=== PATIENT | female | born 1975 ===

== ENCOUNTER → 2022-08-24 09:21 | Outpatient (BNVA) | payer OTHER, SELFPAY | PROVIDERS: PCP Internal Medicine; Visit Provider Internal Medicine Rheumatology | DX: Z13.89 Encounter for screening for other disorder (principal) ==

== ENCOUNTER 2022-08-24 10:27 | Outpatient (REF) | payer OTHER, SELFPAY ==
[2022-08-24 13:58] LABS: MANUAL DIFF FLAG NO
[2022-08-24 14:12] LABS: Basophils Percent Auto 0.7 % (0-2); Eosinophils Absolute Auto 0.1 X10*3/uL (0.0-0.4); Eosinophils Percent Auto 2.5 % (0-4); Hematocrit 36.3 % (37.0-47.0); Hemoglobin 12.5 g/dl (12.0-16.0); Imm Gran Abs Auto 0.01 X10*3/uL (0.00-0.03); Imm Gran Pct Auto 0.2 % (0.0-0.4); Lymphocytes Absolute Auto 1.7 X10*3/uL (1.2-4.9); Lymphocytes Percent Auto 37.4 % (20-40); Mean Corpuscular HGB Conc 34.4 g/dl (31.0-35.0); Mean Corpuscular Hemoglobin 31.2 pg (27.0-33.0); Mean Corpuscular Volume 90.5 fL (80.0-98.0); Mean Platelet Volume 9.9 fL (9.4-12.3); Monocytes Absolute Auto 0.5 X10*3/uL (0.1-1.2); Monocytes Percent Auto 10.1 % (2-11); Neutrophils Absolute Auto 2.2 x10*3/uL (2.0-8.3); Neutrophils Percent Auto 49.1 % (45-73); Platelet Count 343 X10*3/uL (160-400); Red Blood Count 4.01 X10*6/uL (4.20-5.50); Red Cell Distribution Width 12.8 % (11.0-16.0); White Blood Count 4.5 X10*3/uL (4.8-10.8)
[2022-08-24 14:31] LABS: Anion Gap 11 (12-20); Blood Urea Nitrogen 10 mg/dL (9-16); C Reactive Protein < 0.10 mg/dL (< or = 0.50); Calcium 9.3 mg/dL (8.4-10.2); Carbon Dioxide 25 mmol/L (22-29); Chloride 107 mmol/L (96-108); Estimated Glomerular Filt Rate > 60; Glucose Random 83 mg/dL (60-115); Potassium 4.1 mmol/L (3.3-5.1); Sodium 139 mmol/L (135-145)
[2022-08-24 14:52] LABS: Creatinine Urine 54.05 mg/dL; Total Protein Urine Random < 7 mg/dL (<12)
[2022-08-24 15:00] LABS: Erythrocyte Sedimentation Rate 18 MM/HR (0-20)
[2022-08-25 20:39] LABS: Complement C3 119 mg/dL (83-193)
[2022-08-28 22:33] LABS: Anti DNA DS Antibody 4 IU/mL
== END 2022-08-24 10:28 | disposition home or self-care (01) ==
LOC: HO.10HDL 10:27
PROVIDERS: Visit Provider Internal Medicine Rheumatology
DX: M32.9 Systemic lupus erythematosus, unspecified (principal)
CPT/HCPCS: 36415; 80048; 84156; 85025; 85652; 86140; 86160; 86225

== ENCOUNTER → 2022-09-07 10:38 | Outpatient (REF) | payer OTHER, SELFPAY ==
--- NOTE | 2022-09-07 10:40 | CA_ITS ---
Transthoracic Echocardiogram Patient (Last, First, Middle): Natasha Mera I Gender: Female Date of : 1975 Age: 47 Procedure Date: 09/07/2022 Procedure Type: Transthoracic Echocardiogram Location: OP Height: 160.02 cm Weight: 64.41 kg BSA: 1.67 m2 Heart Rate: bpm BP: 145 / 88 mmHg Post Doc Fellowship: MATT Referring MD: Steven Diamond MD Symptoms: M32.9 - Systemic lupus erythematosus, unspecified Study Quality: Adequate ECG Rhythm: Sinus Conclusions: - The left ventricular systolic function is normal. The calculated ejection fraction is 66% by biplane method. - There is mildly increased left ventricular wall thickness. - No obvious valvular pathology seen on this study. - There is a trivial pericardial effusion. Findings Left Ventricle Normal left ventricular cavity size. There is mildly increased left ventricular wall thickness. The left ventricular systolic function is normal. The calculated ejection fraction is 66% by biplane method. There is no evidence of regional wall motion abnormalities. LV peak GLS -21.9%. Right Ventricle Normal right ventricular cavity size and systolic function. Atria Both atria are normal in size. Aortic Valve There is a normal trileaflet aortic valve. There is no aortic valve stenosis. There is no aortic valve regurgitation. Mitral Valve The mitral valve appears normal. There is mild mitral valve regurgitation. There is no mitral valve stenosis. Pulmonic Valve The pulmonic valve is likely normal. Tricuspid Valve There is mild tricuspid valve regurgitation. There is no evidence of pulmonary hypertension. Great Vessels The asc aorta is normal in size. Venous The inferior vena cava is normal in size and collapses greater than 50% with inspiration. Pericardium/Pleural There is a trivial pericardial effusion. Prior Study Comparison No prior study available for comparison. Recommendations, Care & Conclusions No obvious valvular pathology seen on this study. Measurements 2D Linear Measurements IVSd: 1.04 0.6-0.9/0.6-1.0 cm LVIDd: 4.25 3.9-5.3/4.2-5.9 cm LVIDd Index: 2.54 2.4-3.2/2.2-3.1 cm/m2 LVIDs: 2.86 2.0-3.6 cm LVPWd: 1.02 0.7-1.1 cm LA Diam: 3.50 2.7-3.8/3.0-4.0 cm LAIDs Index: 2.10 1.5-2.3 cm/m2 LV Mass: 181.45 67-162/88-224 g LV Mass Index: 108.65 43-95/49-115 g/m2 LVOT Diam: 1.90 3.0+(-)1.3 cm 2D Systolic Function EF 4C: 61.90 >55% EF 2C: 68.40 >55% EF BiP: 65.90 >55% Mitral Valve MV Pk E: 0.89 MV PK A: 0.60 MV Decel Time: 213.00 E/A: 1.50 E'Lateral: 13.30 E'Medial: 8.70 E/E' Med: 10.30 E/E' Lat: 6.70 PHT: 62.00 MVA PHT: 3.55 Decel [place]: 4.19 Aortic Valve AoV Pk Rashad: 1.53 AoV Mn Rashad: 1.10 AoV VTI: 0.37 AoV Pk Grad: 9.00 Aov Mn Grad: 5.00 KATHY Cont.VTI: 2.06 LVOT LVOT Pk Rashad: 1.15 LVOT Mn Rashad: 0.73 LVOT VTI: 0.27 LVOT Pk Grad: 5.00 LVOT Mn Grad: 2.00 LVOT Diam: 1.90 LVOT Area: 2.84 Diastolic Function MV Pk E: 0.89 MV Pk A: 0.60 E/A: 1.50 E'Medial: 8.70 E/E' Med: 10.30 E' Laterial: 13.30 E/E' Lat: 6.70 Right Ventricle TAPSE (mm): 20.30 TVS' Rashad: 12.40 Tricuspid Valve TR Pk Rashad: 2.29 TR Pk Grad: 21.00 RA Press: 3.00 RVSP: 24.00 Great Vessels Aorta Sinus of Valsalva: 2.89 2.0-3.[address] [place]: 2.28 1.7-3.4 cm Ao Asc: 2.90 2.1-3.4 cm Ao Arch: 2.50 Updated in Other Vendor System with Status of Final Tonio Hubbard MD electronically signed on 09/09/2022 12:04:04 PM with status of Final
== END ==
LOC: HO.CARD 10:38
PROVIDERS: Visit Provider Internal Medicine Rheumatology
DX: R00.2 Palpitations (principal); R07.9 Chest pain, unspecified; M32.9 Systemic lupus erythematosus, unspecified; Z79.899 Other long term (current) drug therapy
CPT/HCPCS: 93306; 93356

== ENCOUNTER 2022-10-18 11:53 | Outpatient (REF) | payer OTHER, SELFPAY ==
[2022-10-18 14:18] LABS: Cholesterol 229 mg/dL; HDL Cholesterol 54 mg/dL; LDL Cholesterol Calculated 162 mg/dl; Triglycerides 69 mg/dL
== END 2022-10-18 11:54 | disposition home or self-care (01) ==
LOC: HO.10HDL 11:53
PROVIDERS: Visit Provider Internal Medicine Rheumatology
DX: Z13.220 Encounter for screening for lipoid disorders (principal); M32.9 Systemic lupus erythematosus, unspecified; E78.5 Hyperlipidemia, unspecified
CPT/HCPCS: 36415; 80061

== ENCOUNTER → 2023-01-16 09:27 | Outpatient (BNVA) | payer OTHER, SELFPAY | PROVIDERS: Visit Provider Internal Medicine Rheumatology ==

== ENCOUNTER 2023-01-16 10:47 | Outpatient (REF) | payer OTHER, SELFPAY ==
[2023-01-16 13:11] LABS: MANUAL DIFF FLAG NO
[2023-01-16 13:25] LABS: Basophils Percent Auto 0.5 % (0-2); Eosinophils Absolute Auto 0.2 X10*3/uL (0.0-0.4); Eosinophils Percent Auto 2.5 % (0-4); Hematocrit 37.8 % (37.0-47.0); Hemoglobin 12.6 g/dl (12.0-16.0); Imm Gran Abs Auto 0.01 X10*3/uL (0.00-0.03); Imm Gran Pct Auto 0.2 % (0.0-0.4); Lymphocytes Absolute Auto 1.8 X10*3/uL (1.2-4.9); Lymphocytes Percent Auto 29.4 % (20-40); Mean Corpuscular HGB Conc 33.3 g/dl (31.0-35.0); Mean Corpuscular Hemoglobin 30.7 pg (27.0-33.0); Mean Corpuscular Volume 92.2 fL (80.0-98.0); Mean Platelet Volume 9.6 fL (9.4-12.3); Monocytes Absolute Auto 0.5 X10*3/uL (0.1-1.2); Monocytes Percent Auto 8.4 % (2-11); Neutrophils Absolute Auto 3.5 x10*3/uL (2.0-8.3); Platelet Count 325 X10*3/uL (160-400); Red Cell Distribution Width 12.1 % (11.0-16.0)
[2023-01-16 13:39] LABS: Alanine Aminotransferase 14 U/L (0-31); Albumin Level 4.4 g/dL (3.5-5.0); Alkaline Phosphatase 87 U/L (39-117); Anion Gap 11 (12-20); Aspartate Amino Transferase 19 U/L (5-31); Bilirubin Total 0.7 mg/dL (0.0-1.0); Blood Urea Nitrogen 12 mg/dL (9-16); Calcium 9.6 mg/dL (8.4-10.2); Carbon Dioxide 26 mmol/L (22-29); Chloride 110 mmol/L (96-108); Estimated Glomerular Filt Rate > 60; Glucose Random 79 mg/dL (60-115); Potassium 4.8 mmol/L (3.3-5.1); Sodium 142 mmol/L (135-145); Total Protein 7.7 g/dL (6.5-8.0)
[2023-01-16 13:41] LABS: Creatinine Urine 112.48 mg/dL; Total Protein Urine Random < 7 mg/dL (<12)
[2023-01-16 14:10] LABS: Erythrocyte Sedimentation Rate 28 MM/HR (0-20)
[2023-01-17 18:27] LABS: Complement C3 137 mg/dL (83-193)
== END 2023-01-16 10:48 | disposition home or self-care (01) ==
LOC: HO.10HDL 10:47
PROVIDERS: Visit Provider Internal Medicine Rheumatology
DX: M32.9 Systemic lupus erythematosus, unspecified (principal); M22.40 Chondromalacia patellae, unspecified knee
CPT/HCPCS: 36415; 80053; 82550; 84156; 85025; 85652; 86140; 86160

== ENCOUNTER 2023-05-23 10:04 | Outpatient (AMB) | payer OTHER, SELFPAY ==
--- NOTE | 2023-05-23 10:06 | MHC.OFFVIS ---
Intake Vital Signs 05/23/23 10:16 Height 5 ft 3 in Weight 150 lb 12.739 oz BMI 26.7 BP 102/80 Blood Pressure Location Rt brachial Position Sitting Pulse 71 Pulse Source Pulse Oximeter Temp 97.9 F Temp Source Skin Pulse Oximetry (%) 96 Oxygen Delivery Method Room Air Intake Visit Reasons: sle Intake Note: Patient presents today for SLE follow up. Orientation And Mobility Instructor Required: No Accompanied by: Self / Same As Patient Allergies No Known Allergies Allergy (Verified 05/23/23 10:16) Medication List - Last Reconciled 05/23/23 by Steven Diamond MD acetaminophen (Tylenol Extra Strength) 500 mg PO Q6H PRN atorvastatin 20 mg PO QPM estradiol 0.01%(0.1mg/gram) 1 g vaginal 2XW hydroxychloroquine (Plaquenil) 300 mg (1.5 x 200 mg) PO DAILY ibuprofen (Motrin IB) 800 mg PO DAILY levothyroxine 25 mcg PO DAILY losartan 100 mg PO DAILY metoprolol tartrate 12.5 mg PO DAILY HPI HPI Comments History of Present Illness Details The patient returns for evaluation of her lupus. She remains on 300 mg daily hydroxychloroquine, acetaminophen a few times a day if needed, and occasional ibuprofen as well for joint pain. She has had a supply of 5 mg prednisone that she takes for about 3 days in a row if she feels like she gets a flare-up. During the late summer she did have a series of urinary tract infections. She sounds like she was treated 3 times for such infections. Not surprisingly she then developed some crampy left lower quadrant pain and diarrhea. At one point she was hydrated in the ER. It was found shortly after that that she had C difficile so she was put on vancomycin. Diarrhea has improved. She still has some slight left lower quadrant discomfort. She had a CT scan of the abdomen done while at [facility] This showed some slight thickening in the bladder but otherwise no other significant findings. She has not had any skin rash or swollen joints. In general she felt worse when she had the urinary infection and the colitis with overall fatigue, chills and some joint pain but no swelling of the joints. She remains on levothyroxine and losartan with metoprolol for palpitations. [facility] Medical History (Updated 05/23/23 @ 13:42 by Steven Diamond MD) delivery delivered Skin laxity SLE (systemic lupus erythematosus) Hypothyroidism Degenerative cervical disc Essential hypertension Snoring Palpitation Chronic diarrhea Lymphadenopathy Surgical History H/O foot surgery History of cholecystectomy Family History Maternal Uncle Colon cancer Maternal Aunt Breast cancer Uterine cancer Mother Lymph node cancer Social History Household Members: Spouse, Children and Other Household Members Other:: Mother Alcohol intake: never Patient Tobacco Use Status: Never used Tobacco Current occupational status: employed 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 Negative for vision change, and dizziness ENT Details: Some oral dryness. Negative for hearing change, tinnitus, oral ulcer, nose bleeds Card Details: Negative chest pain, edema , palpitations and syncope Resp Details: Negative for SOB, cough and wheezing GI Details: Mild left lower quadrant discomfort. Negative indigestion/heartburn, nausea, bowel changes, diarrhea, constipation and bloody stool. Details: Negative for dysuria, hematuria, nocturia, decreased force/flow and genital discharge Skin/Breast Details: Negative for itching, rash, hives, Raynaud's symptoms, sun sensitivity, and skin cancer Neuro Details: Negative for epilepsy, palsy, stroke, changes in speech, tingling and weakness Psych Details: Negative for anxiety, depression and stress Endo Details: Negative for polyuria and polydypsia Juan/Lymph Details: Negative for excessive bruising or bleeding. Physical Exam Vital Signs: Last Vital Signs Temp 97.9 F 05/23/23 10:16 Pulse 71 05/23/23 10:16 BP 102/80 05/23/23 10:16 Pulse Ox 96 05/23/23 10:16 Oxygen Delivery Method Room Air 05/23/23 10:16 BMI result Body Mass Index 26.7 APPEARANCE: Patient in no acute distress EYES no redness, pupils equal and reactive to light, eyelids normal EARS:? External ear normal, canal clear and tympanic membrane normal. NOSE/SINUS:? Airflow through both nares, no nasal discharge, no bleeding THROAT:? Oral mucosa moist, no ulcerations NECK:? No thyromegaly or masses, no adenopathy, trachea midline. HEART:? Regulrar rhythm, S1-S2 heard, no murmurs, rubs or gallops. LUNG:? Clear to percussion and auscultation ABD:? Normal bowel sounds, no organomegaly, masses or tenderness. EXTREMITIES:? No edema, no calf tenderness, normal peripheral pulses. No axillary adenopathy. There is no tenderness or breaks in the skin. NEURO:? Oriented and alert x3.? No focal weakness. Her reflexes are symmetric.? Gait normal. SKIN:? No skin the lesions seen. No objective signs of Raynaud's disease. JOINT EXAM:.?? Cervical Spine:? Full range of motion without pain; no tenderness. Thoracic Spine:.? No scoliosis.? No tenderness on palpation. Lumbar Spine:.? Alignment normal.? Full range of motion with slight lumbar discomfort at the extremes of motion. No tenderness. Chest Wall:.? No tenderness, swelling, increased warmth or erythema. Hands:.? Normal pain-free range of motion without tenderness, swelling, increased warmth or erythema. 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 Wrists:.? Normal pain-free range of motion without tenderness, swelling, increased warmth or erythema. Elbows:. Normal pain-free range of motion without tenderness, swelling, increased warmth or erythema. Shoulders:.? Right:? no fullness in the right axillary area.? No tenderness.? There is pain-free range of motion without tenderness in the shoulder.? Left:? Full range of motion without pain. No tenderness, weakness, swelling, increased warmth or erythema. Hips:.? Full range of motion without pain. Hip bursa:.? No tenderness. Knees:.?? Mild pain with extremes of motion some no joint margin or patellar tenderness bilaterally. There is no redness, effusion or warmth. No popliteal tenderness. No ligamentous laxity. Ankles:.? Normal pain-free range of motion without tenderness, swelling, increased warmth or erythema. Feet:? Normal pain-free range of motion without tenderness, swelling, increased warmth or erythema. Tender points:? No tenderness to digital palpation at the occiput, trapezius, second rib, lateral epicondyle, knees, greater trochanter and gluteal area bilaterally. ? 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 Source 02/2010: flare of SLE vs pre-eclampsia.Renal biopsy 12/21: Class 2 lupus nephritis(meangial proliferative) Proteinuria developed; remains on hydroxychlorquine. Eye exam OK 02/20 Hydroxychloroquine had to be stopped in 2014 because of loose stools and abdominal pains. Restarted 01/27 with SLE flare - stopped again 2019; restarted 2020; eye exam OK: fall, spring 2022 Code(s): M32.9 - Systemic lupus erythematosus, unspecified Plan SLE with no clear active disease presently. I think she should stay on the hydroxychloroquine. She should get an eye exam again next winter; September or October would be a reasonable time frame. She is recovering from some C difficile colitis. She still has some minimal left lower quadrant discomfort. I think that if that continues or she gets loose stools again she should be re-evaluated by her primary care team. We will keep the prednisone in reserve to take occasionally for flare ups as she seems to use that in a controlled fashion. I will recheck her labs for inflammatory disease, kidney function and CBC although I would expect the inflammatory markers may be elevated because of her recent infections. We would aim to see her back in about 2 months. Medications: New prednisone 5 mg PO DAILY PRN 30 tabs 0RF lupus flare up 3 days M32.9 - Systemic lupus erythematosus, unspecified Coding Level of Care Code Est Pt Level 3 (76704) Diagnoses History of Clostridioides difficile colitis Z86.19 Long-term use of hydroxychloroquine Z79.899 SLE (systemic lupus erythematosus) M32.9
[2023-05-23 10:16] VITALS: BP 102/80; PULSE 71; TEMP 36.6; O2SAT 96; BMI 26.7
== END 2023-05-23 10:53 | disposition home or self-care (01) ==
PROVIDERS: Visit Provider Internal Medicine Rheumatology
DX: Z86.19 Personal history of other infectious and parasitic diseases (principal); Z79.899 Other long term (current) drug therapy; M32.9 Systemic lupus erythematosus, unspecified
CPT/HCPCS: 99213

== ENCOUNTER → 2023-05-23 10:04 | Outpatient (BNVA) | payer OTHER, SELFPAY | PROVIDERS: Visit Provider Internal Medicine Rheumatology ==

== ENCOUNTER 2023-07-27 09:51 | Outpatient (REF) | payer OTHER, SELFPAY ==
[2023-07-27 10:27] LABS: MANUAL DIFF FLAG NO
[2023-07-27 11:10] LABS: Creatinine Urine 173.94 mg/dL; Protein/Creatinine Ratio, Ur 0.07 (<0.2); Total Protein Urine Random 12 mg/dL (<12)
[2023-07-27 11:19] LABS: Alanine Aminotransferase 10 U/L (0-31); Albumin Level 4.5 g/dL (3.5-5.0); Alkaline Phosphatase 74 U/L (39-117); Anion Gap 10 (12-20); Aspartate Amino Transferase 16 U/L (5-31); Bilirubin Total 0.5 mg/dL (0.0-1.0); Blood Urea Nitrogen 12 mg/dL (9-16); C Reactive Protein < 0.10 mg/dL (< or = 0.50); Calcium 9.3 mg/dL (8.4-10.2); Carbon Dioxide 26 mmol/L (22-29); Chloride 107 mmol/L (96-108); Cholesterol 184 mg/dL (<200); Estimated Glomerular Filt Rate > 60; Glucose Random 87 mg/dL (60-115); HDL Cholesterol 55 mg/dL (>40); LDL Cholesterol Calculated 118 mg/dL (<100); Potassium 3.7 mmol/L (3.3-5.1); Sodium 139 mmol/L (135-145); Total Protein 7.9 g/dL (6.5-8.0); Triglycerides 57 mg/dL (<150)
[2023-07-27 11:23] LABS: Erythrocyte Sedimentation Rate 9 MM/HR (0-20)
[2023-07-27 12:08] LABS: Basophils Percent Auto 0.5 % (0-2); Eosinophils Absolute Auto 0.1 X10*3/uL (0.0-0.4); Eosinophils Percent Auto 1.4 % (0-4); Hematocrit 39.4 % (37.0-47.0); Hemoglobin 13.5 g/dl (12.0-16.0); Imm Gran Abs Auto 0.01 X10*3/uL (0.00-0.03); Imm Gran Pct Auto 0.2 % (0.0-0.4); Lymphocytes Absolute Auto 2.4 X10*3/uL (1.2-4.9); Lymphocytes Percent Auto 42.4 % (20-40); Mean Corpuscular HGB Conc 34.3 g/dl (31.0-35.0); Mean Corpuscular Hemoglobin 30.8 pg (27.0-33.0); Mean Corpuscular Volume 89.7 fL (80.0-98.0); Mean Platelet Volume 9.4 fL (9.4-12.3); Monocytes Absolute Auto 0.5 X10*3/uL (0.1-1.2); Monocytes Percent Auto 8.8 % (2-11); Neutrophils Absolute Auto 2.7 x10*3/uL (2.0-8.3); Neutrophils Percent Auto 46.7 % (45-73); Platelet Count 281 X10*3/uL (160-400); Red Blood Count 4.39 X10*6/uL (4.20-5.50); Red Cell Distribution Width 11.9 % (11.0-16.0); White Blood Count 5.7 X10*3/uL (4.8-10.8)
== END 2023-07-27 09:52 | disposition home or self-care (01) ==
LOC: HO.10HDL 09:51
PROVIDERS: Visit Provider Internal Medicine Rheumatology
DX: M32.9 Systemic lupus erythematosus, unspecified (principal); E78.2 Mixed hyperlipidemia
CPT/HCPCS: 36415; 80053; 80061; 82570; 84156; 85025; 85652; 86140

== ENCOUNTER 2023-08-01 10:18 | Outpatient (AMB) | payer OTHER, SELFPAY ==
--- NOTE | 2023-08-01 10:25 | A.OFFVIS_ITS ---
Intake Vital Signs 08/01/23 10:26 Height 5 ft 3 in Weight 149 lb 7.574 oz BMI 26.5 BP 132/70 Blood Pressure Location Lt brachial Position Sitting Pulse 82 Pulse Source Pulse Oximeter Temp 98.5 F Temp Source Skin Pulse Oximetry (%) 98 Oxygen Delivery Method Room Air Intake Visit Reasons: sle Intake Note: Patient last seen 05/23/23, presents today for follow up and test results. Director Occupational Required: No Accompanied by: Self / Same As Patient Allergies No Known Allergies Allergy (Verified 08/01/23 10:32) HPI HPI Comments History of Present Illness Details The patient returns for evaluation of her SLE. She remains on hydroxychloroquine taking 200 mg daily, occasional acetaminophen for pain, and occasional 5 mg prednisone. She has been having occasional pain in the right ankle in the past 2 weeks. There was no injury involved. More problematic for her has been pain in the lower back. This started about 2 weeks ago. Again no injury was noted. The pain is worse with more physical activity or with prolonged sitting. It does not radiate to the flank, groin or to the legs. She did take the prednisone for the back pain but of course it did help her. She remains on atorvastatin for hyperlipidemia levothyroxine, losartan and metoprolol. She is running out of the metoprolol and wants to get a refill. She apparently could not reach the assembly machine set up mechanic who had prescribed it. [facility] Medical History (Updated 08/01/23 @ 11:12 by Steven Diamond MD) delivery delivered Skin laxity SLE (systemic lupus erythematosus) Hypothyroidism Degenerative cervical disc Essential hypertension Snoring Palpitation Chronic diarrhea Lymphadenopathy Surgical History H/O foot surgery History of cholecystectomy Family History Maternal Uncle Colon cancer Maternal Aunt Breast cancer Uterine cancer Mother Lymph node cancer Social History Household Members: Spouse, Children and Other Household Members Other:: Mother Alcohol intake: never Patient Tobacco Use Status: Never used Tobacco Current occupational status: employed 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 Negative for appetite change, weight change, fever, chills, malaise Eyes Details: Negative for vision change, dry eyes,headaches and dizziness ENT Details: Negative for hearing change, tinnitus, oral ulcer, nose bleeds and oral dryness. Card Details: Occasional palpitations, this is helped with metoprolol. Negative chest pain, edema and syncope Resp Details: Negative for SOB, cough and wheezing GI Details: She had 2 bouts of diarrhea this year attributed to C difficile but the symptoms have subsided. Negative indigestion/heartburn, nausea, abdominal pain, bowel changes, diarrhea, constipation and bloody stool. Details: Negative for dysuria, hematuria, nocturia, decreased force/flow and genital discharge Skin/Breast Details: Negative for itching, rash, hives, Raynaud's symptoms, sun sensitivity, and skin cancer Neuro Details: Negative for epilepsy, palsy, stroke, changes in speech, tingling and weakness Psych Details: Negative for anxiety, depression and stress Endo Details: Negative for polyuria and polydypsia Juan/Lymph Details: Negative for excessive bruising or bleeding. Physical Exam Vital Signs: Last Vital Signs Temp 98.5 F 08/01/23 10:26 Pulse 82 08/01/23 10:26 BP 132/70 08/01/23 10:26 Pulse Ox 98 08/01/23 10:26 Oxygen Delivery Method Room Air 08/01/23 10:26 BMI result Body Mass Index 26.5 APPEARANCE: Patient in no acute distress EYES no redness, pupils equal and reactive to light, eyelids normal EARS:? External ear normal, canal clear and tympanic membrane normal. NOSE/SINUS:? Airflow through both nares, no nasal discharge, no bleeding THROAT:? Oral mucosa moist, no ulcerations NECK:? No thyromegaly or masses, no adenopathy, trachea midline. HEART:? Regulrar rhythm, S1-S2 heard, no murmurs, rubs or gallops. LUNG:? Clear to percussion and auscultation ABD:? Normal bowel sounds, no organomegaly, masses or tenderness. EXTREMITIES:? No edema, no calf tenderness, normal peripheral pulses. No axillary adenopathy. NEURO:? Oriented and alert x3.? No focal weakness. Her reflexes are symmetric.? Gait normal. SKIN:? No skin the lesions seen. No objective signs of Raynaud's disease. JOINT EXAM:.?? Cervical Spine:? Full range of motion without pain; no tenderness. Thoracic Spine:.? No scoliosis.? No tenderness on palpation. Lumbar Spine:.? Alignment normal.? Lumbar pain with flexion at 60 degrees with some paraspinal muscle tenderness but no tenderness over the vertebral spines. Straight leg raising is negative.. Chest Wall:.? No tenderness, swelling, increased warmth or erythema. Hands:.? Normal pain-free range of motion without tenderness, swelling, increased warmth or erythema. 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 Wrists:.? Normal pain-free range of motion without tenderness, swelling, increased warmth or erythema. Elbows:. Normal pain-free range of motion without tenderness, swelling, increased warmth or erythema. Shoulders:.? Right:? no fullness in the right axillary area.? No tenderness.? There is pain-free range of motion without tenderness in the shoulder.? Left:? Full range of motion without pain. No tenderness, weakness, swelling, increased warmth or erythema. Hips:.? Full range of motion without pain. Hip bursa:.? No tenderness. Knees:.?? Mild pain with extremes of motion some no joint margin or patellar tenderness bilaterally. There is no redness, effusion or warmth. No popliteal tenderness. No ligamentous laxity. Ankles:.? Right: Slight discomfort with extremes of inversion and eversion. There is some mild anterior tenderness over the extensor tendons in front of the ankle. No redness or swelling is appreciated. Left: Normal pain-free range of motion without tenderness, swelling, increased warmth or erythema. Feet:? Normal pain-free range of motion without tenderness, swelling, increased warmth or erythema. ? Results Reviewed Results Reviewed: Laboratory Tests 10/18/22 07/27/23 07/27/23 11:56 10:00 10:00 WBC 5.7 Hgb 13.5 ESR 9 Creatinine 0.81 C-Reactive Protein < 0.10 Cholesterol 229 184 LDL Cholesterol, Calc 162 118 H Laboratory Tests 07/27/23 09:35 Protein/Creatinin Ratio 0.07 Assessment & Plan Assessment & Plan (1) Low back pain: Code(s): M54.50 - Low back pain, unspecified (2) Essential hypertension: Code(s): I10 - Essential (primary) hypertension (3) Hyperlipidemia: Code(s): E78.5 - Hyperlipidemia, unspecified (4) SLE (systemic lupus erythematosus): Comment: Onset 2001 with fever, arthritis, skin rash, throbocytopenia 04/2007: abdominal pains, fever, headaches with some CSF blood - ? Source 02/2010: flare of SLE vs pre-eclampsia.Renal biopsy 12/21: Class 2 lupus nephritis(meangial proliferative) Proteinuria developed; remains on hydroxychlorquine. Eye exam OK 02/20 Hydroxychloroquine had to be stopped in 2014 because of loose stools and abdominal pains. Restarted 01/27 with SLE flare - stopped again 2019; restarted 2020; eye exam OK: fall, spring 2022 Code(s): M32.9 - Systemic lupus erythematosus, unspecified Plan SLE with I think good control of SLE symptoms with current treatment. The back pain I think is secondary to mechanical and degenerative changes. We will try some nighttime cyclobenzaprine for that and a referral to physical therapy. I told her if symptoms do not improve in 4-6 weeks she should have an x-ray done. The cholesterol had improves considerably on the atorvastatin so I think it should be continued. Blood pressure is controlled; I will give her a regill for the metoprolol. I will order lab work to be done before next visit in about 3 months. Orders: Orders Erythrocyte Sedimentation Rate Today M32.9 - Systemic lupus erythematosus, unspecified Anti DNA DS Antibody Today M32.9 - Systemic lupus erythematosus, unspecified Complement C3 Today M32.9 - Systemic lupus erythematosus, unspecified Complete Blood Count Auto Diff Today M32.9 - Systemic lupus erythematosus, unspecified PT Evaluation and Treatment Today M54.50 - Low back pain, unspecified Complement C4 Today M32.9 - Systemic lupus erythematosus, unspecified Comprehensive Met. Panel Today M32.9 - Systemic lupus erythematosus, unspecified C Reactive Protein Today M32.9 - Systemic lupus erythematosus, unspecified Protein Creatinine Ratio, Ur Today M32.9 - Systemic lupus erythematosus, unspecified Medications: New metoprolol tartrate 12.5 mg (1/2 x 25 mg) PO DAILY 30 tabs 2RF I10 - Essential (primary) hypertension cyclobenzaprine 5 - 10 mg (0.5 - 1 x 10 mg) PO BEDTIME PRN 30 tabs 1RF muscle spasm M54.50 - Low back pain, unspecified Coding Level of Care Code Est Pt Level 4 (15647) Diagnoses Low back pain M54.50 Essential hypertension I10 Hyperlipidemia E78.5 SLE (systemic lupus erythematosus) M32.9
[2023-08-01 10:26] VITALS: BP 132/70; PULSE 82; TEMP 36.9; O2SAT 98; BMI 26.5
== END 2023-08-01 11:26 | disposition home or self-care (01) ==
PROVIDERS: Visit Provider Internal Medicine Rheumatology
DX: M54.50 Low back pain, unspecified (principal); I10 Essential (primary) hypertension; E78.5 Hyperlipidemia, unspecified; M32.9 Systemic lupus erythematosus, unspecified
CPT/HCPCS: 99214

== ENCOUNTER → 2023-08-01 10:18 | Outpatient (BNVA) | payer OTHER, SELFPAY | PROVIDERS: Visit Provider Internal Medicine Rheumatology ==

== ENCOUNTER 2023-11-07 16:22 | Outpatient (REF) | payer OTHER, SELFPAY ==
[2023-11-07 16:36] LABS: MANUAL DIFF FLAG NO
[2023-11-07 17:53] LABS: Basophils Percent Auto 0.6 % (0-2); Eosinophils Absolute Auto 0.1 X10*3/uL (0.0-0.4); Eosinophils Percent Auto 1.9 % (0-4); Hematocrit 36.8 % (37.0-47.0); Imm Gran Abs Auto 0.01 X10*3/uL (0.00-0.03); Imm Gran Pct Auto 0.2 % (0.0-0.4); Lymphocytes Absolute Auto 2.7 X10*3/uL (1.2-4.9); Lymphocytes Percent Auto 42.5 % (20-40); Mean Corpuscular HGB Conc 35.3 g/dl (31.0-35.0); Mean Corpuscular Hemoglobin 31.6 pg (27.0-33.0); Mean Corpuscular Volume 89.5 fL (80.0-98.0); Mean Platelet Volume 9.6 fL (9.4-12.3); Monocytes Absolute Auto 0.5 X10*3/uL (0.1-1.2); Monocytes Percent Auto 8.5 % (2-11); Neutrophils Percent Auto 46.3 % (45-73); Platelet Count 303 X10*3/uL (160-400); Red Blood Count 4.11 X10*6/uL (4.20-5.50); Red Cell Distribution Width 11.8 % (11.0-16.0); White Blood Count 6.4 X10*3/uL (4.8-10.8)
[2023-11-07 18:07] LABS: Alanine Aminotransferase 16 U/L (0-31); Albumin Level 4.3 g/dL (3.5-5.0); Alkaline Phosphatase 72 U/L (39-117); Anion Gap 12 (12-20); Aspartate Amino Transferase 20 U/L (5-31); Bilirubin Total 0.6 mg/dL (0.0-1.0); Blood Urea Nitrogen 16 mg/dL (9-16); C Reactive Protein < 0.10 mg/dL (< or = 0.50); Calcium 9.5 mg/dL (8.4-10.2); Carbon Dioxide 27 mmol/L (22-29); Chloride 108 mmol/L (96-108); Estimated Glomerular Filt Rate > 60; Glucose Random 84 mg/dL (60-115); Potassium 3.8 mmol/L (3.3-5.1); Sodium 143 mmol/L (135-145); Total Protein 7.6 g/dL (6.5-8.0)
[2023-11-07 19:16] LABS: Erythrocyte Sedimentation Rate 13 MM/HR (0-20)
[2023-11-07 22:29] LABS: Total Protein Urine Random < 7 mg/dL (<12)
[2023-11-08 14:09] LABS: Anti DNA DS Antibody 3 IU/mL
[2023-11-10 01:58] LABS: Complement C3 89 mg/dL (83-193)
== END 2023-11-07 16:23 | disposition home or self-care (01) ==
LOC: HO.LAB 16:22
PROVIDERS: Visit Provider Internal Medicine Rheumatology
DX: M32.9 Systemic lupus erythematosus, unspecified (principal)
CPT/HCPCS: 36415; 80053; 82570; 84156; 85025; 85652; 86140; 86160; 86225

== ENCOUNTER 2023-11-09 10:01 | Outpatient (AMB) | payer OTHER, SELFPAY ==
--- NOTE | 2023-11-09 10:02 | A.OFFVIS_ITS ---
Intake Vital Signs 11/09/23 10:09 Height 5 ft 3 in Weight 148 lb 12.992 oz BMI 26.4 BP 120/78 Blood Pressure Location Rt brachial Position Sitting Pulse 64 Pulse Source Pulse Oximeter Temp 97 F Temp Source Skin Pulse Oximetry (%) 97 Oxygen Delivery Method Room Air Intake Visit Reasons: SLE/CONFRIMED Intake Note: Patient last seen 06/01/[address] Diamond, presents today for follow up and test results. Reports episode of chest pain, tenderness to touch. Health Director Required: No Accompanied by: Self / Same As Patient Allergies No Known Allergies Allergy (Verified 11/09/23 10:08) HPI HPI Comments History of Present Illness Details Ms. Kaur 48yoF returns for evaluation of her SLE. She remains on hydroxychloroquine taking 200 mg daily, occasional acetaminophen for pain, and occasional 5 mg prednisone. She averages prednisone once or twice per year. She has been feeling well with no complaints. However, she shares that she felt a sharp pain to her left chest yesterday (11/07/2023). Initially the chest area remains severely tender to the touch for about an hour but now she only feels that soreness when she squeezes her chest with her arm. She denies exertion activities, GERD, SOB, headache, jaw pain, blurry vision or speech alteration. She has no facial droop and swallows food OK. She cannot recreate the pain and there is no tenderness to palpation at this time. She remains on atorvastatin for hyperlipidemia levothyroxine, losartan and metop rolol. She has not seen temperer in about 2 years. [facility] Medical History (Updated 11/09/23 @ 12:31 by JAYDEN Corcoran) Chest pain delivery delivered Skin laxity SLE (systemic lupus erythematosus) Hypothyroidism Degenerative cervical disc Essential hypertension Snoring Palpitation Chronic diarrhea Lymphadenopathy Surgical History H/O foot surgery History of cholecystectomy Family History Maternal Uncle Colon cancer Maternal Aunt Breast cancer Uterine cancer Mother Lymph node cancer Social History Household Members: Spouse, Children and Other Household Members Other:: Mother Alcohol intake: never Patient Tobacco Use Status: Never used Tobacco Current occupational status: employed 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 External ear normal, canal clear and tympanic membrane normal. NOSE/SINUS:? Airflow through both nares, no nasal discharge, no bleeding THROAT:? Oral mucosa moist, no ulcerations NECK:? No thyromegaly or masses, no adenopathy, trachea midline. HEART:? Regular rhythm, S1-S2 heard, no murmurs, rubs or gallops. LUNG:? Clear to percussion and auscultation ABD:? Normal bowel sounds, no organomegaly, masses or tenderness. EXTREMITIES:? No edema, no calf tenderness, normal peripheral pulses. No axillary adenopathy. NEURO:? Oriented and alert x3.? No focal weakness. Her reflexes are symmetric.? Gait normal. SKIN:? No skin the lesions seen. No objective signs of Raynaud's disease. JOINT EXAM:.?? Cervical Spine:? Full range of motion without pain; no tenderness. Thoracic Spine:.? No scoliosis.? No tenderness on palpation. Lumbar Spine:.? Alignment normal.? Lumbar pain with flexion at 60 degrees with some paraspinal muscle tenderness but no tenderness over the vertebral spines. Straight leg raising is negative.. Chest Wall:.? No tenderness, swelling, increased warmth or erythema. Hands:.? Normal pain-free range of motion without tenderness, swelling, increased warmth or erythema. Able to make a full fist and has a good vice president of procurement s trength. Wrists:.? Normal pain-free range of motion without tenderness, swelling, increased warmth or erythema. Elbows:. Normal pain-free range of motion without tenderness, swelling, increased warmth or erythema. Shoulders:.? Right:? no fullness in the right axillary area.? No tenderness.? There is pain-free range of motion without tenderness in the shoulder.? Left:? Full range of motion without pain. No tenderness, weakness, swelling, increased warmth or erythema. Hips:.? Full range of motion without pain. Hip bursa:.? No tenderness. Knees:.?? Mild pain with extremes of motion some no joint margin or patellar tenderness bilaterally. There is no redness, effusion or warmth. No popliteal tenderness. No ligamentous laxity. Ankles:.? Right: Slight discomfort with extremes of inversion and eversion. There is some mild anterior tenderness over the extensor tendons in front of the ankle. No redness or swelling is appreciated. Left: Normal pain-free range of motion without tenderness, swelling, increased warmth or erythema. Feet:? Normal pain-free range of motion without tenderness, swelling, increased warmth or erythema. ? Results Reviewed Results Reviewed: Laboratory Tests 11/07/23 16:34 WBC 6.4 RBC 4.11 L Hgb 13.0 Hct 36.8 L ESR 13 Creatinine 0.78 AST 20 ALT 16 C-Reactive Protein < 0.10 Assessment & Plan Assessment & Plan (1) SLE (systemic lupus erythematosus): Comment: Onset 2001 with fever, arthritis, skin rash, throbocytopenia 04/2007: abdominal pains, fever, headaches with some CSF blood - ? Source 02/2010: flare of SLE vs pre-eclampsia.Renal biopsy 12/21: Class 2 lupus nephritis(meangial proliferative) Proteinuria developed; remains on hydroxychlorquine. Eye exam OK 02/20 Hydroxychloroquine had to be stopped in 2014 because of loose stools and abdominal pains. 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 Her blood pressure is controlled at visit today. Rheum has been refilling the Metoprolol. The patient has not seen Nephro in two years. I recommend that she schedule follow-up. I will order lab work to be done before next visit in about 4 months. I will order an EKG for the new onset precordial chest pain. 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
[2023-11-09 10:09] VITALS: BP 120/78; PULSE 64; TEMP 36.1; O2SAT 97; BMI 26.4
== END 2023-11-09 10:41 | disposition home or self-care (01) ==
PROVIDERS: PCP Internal Medicine; Referring Provider Internal Medicine; Visit Provider Nurse Practitioner Family
DX: M32.19 Other organ or system involvement in systemic lupus erythematosus (principal); Z79.899 Other long term (current) drug therapy; I10 Essential (primary) hypertension; R07.2 Precordial pain
CPT/HCPCS: 99214

== ENCOUNTER → 2023-11-09 10:01 | Outpatient (REF) | payer OTHER, SELFPAY ==
--- NOTE | 2023-11-09 10:56 | ECG_ITS ---
Test Reason : SYSTEMIC LUPUS ERYTH Blood Pressure : / mmHG Vent. Rate : 049 BPM Atrial Rate : 049 BPM P-R Int : 146 ms QRS Dur : 086 ms QT Int : 432 ms P-R-T Axes : 059 018 041 degrees QTc Int : 390 ms Sinus bradycardia Otherwise normal ECG No previous ECGs available Referred By: Domitila Ch Electronically Signed By:Saad Reno
== END ==
LOC: HO.CARD 10:01
PROVIDERS: PCP Internal Medicine; Referring Provider Internal Medicine; Visit Provider Nurse Practitioner Family
DX: M32.9 Systemic lupus erythematosus, unspecified (principal); M32.19 Other organ or system involvement in systemic lupus erythematosus; R07.2 Precordial pain; I10 Essential (primary) hypertension; Z79.899 Other long term (current) drug therapy
CPT/HCPCS: 93005

== ENCOUNTER → 2023-11-09 10:56 | Outpatient (BNV) | payer OTHER, SELFPAY | PROVIDERS: PCP Internal Medicine; Referring Provider Internal Medicine; Visit Provider Internal Medicine Cardiovascular Disease | DX: R00.1 Bradycardia, unspecified (principal) | CPT/HCPCS: 93010 ==

== ENCOUNTER 2024-03-27 11:07 | Outpatient (AMB) | payer OTHER, SELFPAY ==
--- NOTE | 2024-03-27 11:09 | MHC.OFFVIS ---
Vital Signs 03/27/24 11:14 Height 5 ft 3 in Weight 152 lb 5.431 oz BMI 27.0 BP 112/72 Blood Pressure Location Lt brachial Position Sitting Pulse 66 Pulse Source Pulse Oximeter Pulse Oximetry (%) 98 Oxygen Delivery Method Room Air Intake Visit Reasons: SLE Intake Note: Patient presents for SLE. Allergies No Known Allergies Allergy (Verified 03/27/24 11:13) Medication List - Last Reconciled 03/27/24 by Jaylyn Johnston MD acetaminophen (Tylenol Extra Strength) 500 mg PO Q6H PRN atorvastatin 20 mg PO QPM cyclobenzaprine 5 - 10 mg (0.5 - 1 x 10 mg) PO BEDTIME PRN estradiol 0.01%(0.1mg/gram) 1 g vaginal 2XW hydroxychloroquine (Plaquenil) 300 mg (1.5 x 200 mg) PO DAILY ibuprofen (Motrin IB) 800 mg PO DAILY levothyroxine 25 mcg PO DAILY losartan 100 mg PO DAILY metoprolol tartrate 12.5 mg (1/2 x 25 mg) PO DAILY prednisone 5 mg PO DAILY PRN vancomycin 250 mg PO QID HPI Comments Details: This is a 49-year-old female who presents for evaluation of SLE. She is here at the request of her infectious disease specialist Dr. Brennan. Patient states that she has been having recurrent C diff infections over the last year. It happened after she took an antibiotic. She received multiple courses of oral vancomycin but it keeps recurring. She was offered fecal transplantation versus Bezlotoxumab infusion. Patient states that her lupus is doing about the same overall. Continues to have intermittent flare-ups of joint pain and swelling. States that her nails have changed. There is space in between her nails and nail bed, especially her toenails. She also noticed whitish discoloration of her nails. She has not had any recent fevers. [facility] Medical History Chest pain delivery delivered Skin laxity SLE (systemic lupus erythematosus) Hypothyroidism Degenerative cervical disc Essential hypertension Snoring Palpitation Chronic diarrhea Lymphadenopathy Surgical History H/O foot surgery History of cholecystectomy Family History Maternal Uncle Colon cancer Maternal Aunt Breast cancer Uterine cancer Mother Lymph node cancer Social History Household Members: Spouse, Children and Other Household Members Other:: Mother Alcohol intake: never Patient Tobacco Use Status: Never used Tobacco Current occupational status: employed 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,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 Review of Systems Musc Reports arthralgias and Reports joint swelling Skin/Breast Reports nail changes Physical Exam Vital Signs: Last Vital Signs Pulse 66 03/27/24 11:14 BP 112/72 03/27/24 11:14 Pulse Ox 98 03/27/24 11:14 Oxygen Delivery Method Room Air 03/27/24 11:14 BMI result Body Mass Index 27.0 Const General: cooperative, healthy appearing and comfortable Nutritional Appearance: overweight Orientation/consciousness: patient oriented x3 Limitations: no limitations HEENT Head: Yes normocephalic and Yes atraumatic Mouth: moist mucous membranes Resp Effort & Inspection: normal respiratory effort and able to speak in complete sentences Auscultation: clear to auscultation bilaterally Cardio Rate: regular rate Rhythm: regular rhythm Skin Other: Some whitish discoloration of her nails including her toenails, mild onycholysis General skin exam: no rashes or lesions noted Neuro General: patient oriented x3 Extrem Other: No active synovitis today Normal nailfold capillaroscopy Assessment & Plan Assessment & Plan (1) SLE (systemic lupus erythematosus): Comment: Onset 2001 with fever, arthritis, skin rash, throbocytopenia (+GABE ++DsDNA, low C3, low C4) 04/2007: abdominal pains, fever, headaches with some CSF blood - ? Source 02/2010: flare of SLE vs pre-eclampsia.Renal biopsy 12/21: Class 2 lupus nephritis(mesangial proliferative) Proteinuria developed; remains on hydroxychlorquine Hydroxychloroquine had to be stopped in 2014 because of loose stools and abdominal pains. Restarted 01/27 with SLE flare - stopped again 2019; restarted 2020 Code(s): M32.9 - Systemic lupus erythematosus, unspecified Category: Medical Qualifiers: Systemic lupus erythematosus type: other Systemic lupus erythematosus organ involvement: other Qualified Code(s): M32.19 - Other organ or system involvement in systemic lupus erythematosus Plan: This is a 49-year-old female with SLE who presents for follow-up. This is her 1st visit with me. Upon evaluation I think her SLE is stable. States that she continues to have intermittent episodes of joint pain and swelling. No active synovitis on exam today. Advised patient to take pictures of any swollen joints, take pictures of any rashes. 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 She has been treated with multiple courses of vancomycin without resolution. She was offered fecal transplantation versus Bezlotoxumab infusion Patient patient opted for Bezlooxumab infusion. There is no objection from Rheumatology standpoint to this infusion. Patient can proceed Plan I spent 45 minutes reviewing patient's chart, looking at old records from [place] evaluating patient, ordering diagnostic workup, counseling patient and documenting in the chart Orders: Orders Complement C3 3 Months M32.19 - Other organ or system involvement in systemic lupus erythematosus C Reactive Protein 3 Months M32.19 - Other organ or system involvement in systemic lupus erythematosus UA w Microscopic 3 Months M32.19 - Other organ or system involvement in systemic lupus erythematosus Protein Creatinine Ratio, Ur 3 Months M32.19 - Other organ or system involvement in systemic lupus erythematosus DNA Double Stranded-Crithidia 3 Months M32.19 - Other organ or system involvement in systemic lupus erythematosus T Spot TB 3 Months Z11.7 - Encounter for testing for latent tuberculosis infection Hepatitis A,B,C Profile 3 Months Z11.59 - Encounter for screening for other viral diseases Anti DNA DS Antibody 3 Months M32.19 - Other organ or system involvement in systemic lupus erythematosus Complement C4 3 Months M32.19 - Other organ or system involvement in systemic lupus erythematosus Erythrocyte Sedimentation Rate 3 Months M32.19 - Other organ or system involvement in systemic lupus erythematosus Anti Extractable Nuclear Ag 3 Months M32.19 - Other organ or system involvement in systemic lupus erythematosus Complete Blood Count Auto Diff 3 Months M32.19 - Other organ or system involvement in systemic lupus erythematosus Comprehensive Met. Panel 3 Months M32.19 - Other organ or system involvement in systemic lupus erythematosus Thiopurine Methyltransferase 3 Months Z51.81 - Encounter for therapeutic drug level monitoring, Z79.624 - residential (current) use of inhibitors of nucleotide synthesis Medications: Refilled hydroxychloroquine (Plaquenil) 300 mg (1.5 x 200 mg) PO DAILY 135 tabs 3RF M32.9 - Systemic lupus erythematosus, unspecified Coding Level of Care Code Est Pt Level 5 (44913) Complex EM visit Add On G2211 Diagnoses Other systemic lupus erythematosus with other organ involvement M32.19 Systemic lupus erythematosus type: other Systemic lupus erythematosus organ involvement: other Long-term use of hydroxychloroquine Z79.899 Recurrent Clostridioides difficile infection A49.8
[2024-03-27 11:14] VITALS: BP 112/72; PULSE 66; O2SAT 98; BMI 27.0
== END 2024-03-27 11:31 | disposition home or self-care (01) ==
PROVIDERS: PCP Internal Medicine; Visit Provider Student in an Organized Health Care Education/Training Program
DX: M32.19 Other organ or system involvement in systemic lupus erythematosus (principal); Z79.899 Other long term (current) drug therapy; A49.8 Other bacterial infections of unspecified site
CPT/HCPCS: 99215

== ENCOUNTER → 2024-03-27 11:07 | Outpatient (BNVA) | payer OTHER, SELFPAY | PROVIDERS: PCP Internal Medicine; Visit Provider Student in an Organized Health Care Education/Training Program ==

== ENCOUNTER 2024-07-15 11:25 | Outpatient (REF) | payer OTHER, SELFPAY ==
[2024-07-15 13:31] LABS: Appearance Urine Clear; Color Urine Yellow; Glucose Urine UA Negative (Negative); Leukocyte Esterase Urine Negative (Negative); Nitrite Urine Negative (Negative); PH 5.5 (5.0-9.0); Urine Blood Negative (Negative); Urine Ketones Negative (Negative); Urine Protein Negative (Neg-Trace)
[2024-07-15 13:35] LABS: MANUAL DIFF FLAG NO
[2024-07-15 13:39] LABS: Bacteria Urine None Seen (None Seen); Hyaline Casts Urine 0-2 /LPF (0-2); RBC Urine 0-2 /HPF (0-2); Squamous Epithelial Cell Urine 0-2 /HPF (0-2); WBC Urine 0-5 /HPF (0-5)
[2024-07-15 14:05] LABS: Basophils Percent Auto 0.5 % (0-2); Eosinophils Absolute Auto 0.1 X10*3/uL (0.0-0.4); Eosinophils Percent Auto 2.1 % (0-4); Imm Gran Abs Auto 0.01 X10*3/uL (0.00-0.03); Imm Gran Pct Auto 0.2 % (0.0-0.4); Lymphocytes Percent Auto 35.5 % (20-40); Mean Corpuscular HGB Conc 34.2 g/dl (31.0-35.0); Mean Corpuscular Hemoglobin 30.9 pg (27.0-33.0); Mean Corpuscular Volume 90.3 fL (80.0-98.0); Mean Platelet Volume 9.5 fL (9.4-12.3); Monocytes Absolute Auto 0.5 X10*3/uL (0.1-1.2); Monocytes Percent Auto 9.6 % (2-11); Neutrophils Absolute Auto 2.9 x10*3/uL (2.0-8.3); Neutrophils Percent Auto 52.1 % (45-73); Platelet Count 301 X10*3/uL (160-400); Red Blood Count 4.21 X10*6/uL (4.20-5.50); White Blood Count 5.6 X10*3/uL (4.8-10.8)
[2024-07-15 14:15] LABS: Alanine Aminotransferase 19 U/L (0-31); Albumin Level 4.3 g/dL (3.5-5.0); Alkaline Phosphatase 69 U/L (39-117); Anion Gap 9 (12-20); Aspartate Amino Transferase 23 U/L (5-31); Bilirubin Total 0.5 mg/dL (0.0-1.0); Blood Urea Nitrogen 11 mg/dL (9-16); C Reactive Protein < 0.10 mg/dL (< or = 0.50); Carbon Dioxide 28 mmol/L (22-29); Chloride 108 mmol/L (96-108); Estimated Glomerular Filt Rate > 60; Glucose Random 68 mg/dL (60-115); Potassium 3.9 mmol/L (3.3-5.1); Sodium 141 mmol/L (135-145); Total Protein 7.4 g/dL (6.5-8.0)
[2024-07-15 14:54] LABS: Creatinine Urine 63.91 mg/dL; Total Protein Urine Random < 7 mg/dL (<12)
[2024-07-15 15:02] LABS: Erythrocyte Sedimentation Rate 16 MM/HR (0-20)
[2024-07-16 16:14] LABS: Complement C3 127 mg/dL (83-193)
[2024-07-17 14:18] LABS: Anti DNA DS Antibody 2 IU/mL; SM/Ribonucleoprotein Ab <1.0 NEG AI (<1.0 NEG); Smith Protein <1.0 NEG AI (<1.0 NEG)
[2024-07-18 05:03] LABS: TS Negative Control Passed; TS Panel A 0; TS Panel B 0; TS Positive Control Passed; TSpotTB Negative (Negative)
[2024-07-22 15:33] LABS: DNAds, Crithidia Antibody Positive (Negative)
[2024-07-22 16:04] LABS: DNAds, Crithidia Antibody 1:20 titer (<1:10)
== END 2024-07-15 11:26 | disposition home or self-care (01) ==
LOC: HO.10HDL 11:25
PROVIDERS: Visit Provider Student in an Organized Health Care Education/Training Program
DX: M32.19 Other organ or system involvement in systemic lupus erythematosus (principal); Z11.7 Encounter for testing for latent tuberculosis infection
CPT/HCPCS: 36415; 80053; 81001; 82570; 84156; 85025; 85652; 86140; 86160; 86225; 86235; 86255; 86481

== ENCOUNTER 2024-07-18 10:46 | Outpatient (AMB) | payer OTHER, SELFPAY ==
[2024-07-18 10:52] VITALS: BP 120/70; PULSE 73; O2SAT 97; BMI 28.1
--- NOTE | 2024-07-18 10:52 | MHC.OFFVIS ---
Vital Signs 07/18/24 10:52 Height 5 ft 3 in Weight 158 lb 11.725 oz BMI 28.1 BP 120/70 Blood Pressure Location Lt brachial Position Sitting Pulse 73 Pulse Source Pulse Oximeter Pulse Oximetry (%) 97 Oxygen Delivery Method Room Air Intake Visit Reasons: sle/cm Intake Note: Patient last seen by Doctor Jaylyn Johnston on 03/27/24. Presents today for SLE follow up and test results. Patient is requesting hydroxychloroquine refill today. Allergies No Known Allergies Allergy (Verified 07/18/24 10:54) Medication List - Last Reconciled 07/18/24 by Jaylyn Johnston MD acetaminophen (Tylenol Extra Strength) 500 mg PO Q6H PRN atorvastatin 20 mg PO QPM cyclobenzaprine 5 - 10 mg (0.5 - 1 x 10 mg) PO BEDTIME PRN estradiol 0.01%(0.1mg/gram) 1 g vaginal 2XW hydroxychloroquine (Plaquenil) 300 mg (1.5 x 200 mg) PO DAILY ibuprofen (Motrin IB) 800 mg PO DAILY levothyroxine 25 mcg PO DAILY losartan 100 mg PO DAILY metoprolol tartrate 12.5 mg (1/2 x 25 mg) PO DAILY prednisone 5 mg PO DAILY PRN vancomycin 250 mg PO QID HPI Comments Details: This is a 49-year-old female with SLE who presents for follow-up. She states that she is doing reasonably well overall. She states that she gets intermittent knee pain. She uses prednisone as needed. She takes 1 or 2 tablets every 1-2 months. No significant skin rashes. He has been trying to lose weight. Going to the gym but she has been gaining weight and would like to discuss new weight loss medications such as Wegovy. [facility] Medical History Chest pain delivery delivered Skin laxity SLE (systemic lupus erythematosus) Hypothyroidism Degenerative cervical disc Essential hypertension Snoring Palpitation Chronic diarrhea Lymphadenopathy Surgical History H/O foot surgery History of cholecystectomy Family History Maternal Uncle Colon cancer Maternal Aunt Breast cancer Uterine cancer Mother Lymph node cancer Social History Household Members: Spouse, Children and Other Household Members Other:: Mother Alcohol intake: never Patient Tobacco Use Status: Never used Tobacco Current occupational status: employed 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 Reports arthralgias and Denies joint swelling Physical Exam Vital Signs: Last Vital Signs Pulse 73 07/18/24 10:52 BP 120/70 07/18/24 10:52 Pulse Ox 97 07/18/24 10:52 Oxygen Delivery Method Room Air 07/18/24 10:52 BMI result Body Mass Index 28.1 Const General: cooperative, healthy appearing and comfortable Nutritional Appearance: overweight Orientation/consciousness: patient oriented x3 Limitations: no limitations HEENT Head: Yes normocephalic and Yes atraumatic Mouth: moist mucous membranes Resp Effort & Inspection: normal respiratory effort and able to speak in complete sentences Auscultation: clear to auscultation bilaterally Cardio Rate: regular rate Rhythm: regular rhythm Neuro General: patient oriented x3 Extrem Other: No active synovitis today Normal nailfold capillaroscopy Assessment & Plan Assessment & Plan (1) SLE (systemic lupus erythematosus): Comment: Onset 2001 with fever, arthritis, skin rash, throbocytopenia (+GABE ++DsDNA, low C3, low C4) 04/2007: abdominal pains, fever, headaches with some CSF blood - ? Source 02/2010: flare of SLE vs pre-eclampsia.Renal biopsy 12/21: Class 2 lupus nephritis(mesangial proliferative) Proteinuria developed; remains on hydroxychlorquine Hydroxychloroquine had to be stopped in 2014 because of loose stools and abdominal pains. Restarted 01/27 with SLE flare - stopped again 2019; restarted 2020 Code(s): M32.9 - Systemic lupus erythematosus, unspecified Category: Medical Qualifiers: Systemic lupus erythematosus type: other Systemic lupus erythematosus organ involvement: other Qualified Code(s): M32.19 - Other organ or system involvement in systemic lupus erythematosus Plan: This is a 49-year-old female with SLE who presents for follow-up. Doing well overall. No Signs of SLE activity on exam. Labs are unremarkable. Continue hydroxychloroquine 300 mg daily With regards to using GLP agonist. There is no contraindication from Rheumatology standpoint. Advised patient to discuss it with her PCP Labs before next visit in 6 months (2) Long-term use of hydroxychloroquine: Comment: eye exam OK 10/2023 Code(s): Z79.899 - Other skilled nursing (current) drug therapy Category: Medical Plan: Follow-up regularly with Ophthalmology (3) Recurrent Clostridioides difficile infection: Code(s): A49.8 - Other bacterial infections of unspecified site Category: Medical Plan: She stated that she has been having recurrent C diff infections since taking antibiotics in 2022. She has been treated with multiple courses of vancomycin without resolution. She was offered fecal transplantation versus Bezlotoxumab infusion Patient patient opted for Bezlooxumab infusion. Per patient, it was denied. She states that she has not had any recurrent C diff problems recently Plan I spent 45 minutes reviewing patient's chart, looking at old records from [place] evaluating patient, ordering diagnostic workup, counseling patient and documenting in the chart Orders: Orders Anti DNA DS Antibody 6 Months M32.19 - Other organ or system involvement in systemic lupus erythematosus Erythrocyte Sedimentation Rate 6 Months M32.19 - Other organ or system involvement in systemic lupus erythematosus Protein Creatinine Ratio, Ur 6 Months M32.19 - Other organ or system involvement in systemic lupus erythematosus Comprehensive Met. Panel 6 Months M32.19 - Other organ or system involvement in systemic lupus erythematosus Complement C3 6 Months M32.19 - Other organ or system involvement in systemic lupus erythematosus Complement C4 6 Months M32.19 - Other organ or system involvement in systemic lupus erythematosus C Reactive Protein 6 Months M32.19 - Other organ or system involvement in systemic lupus erythematosus UA w Microscopic 6 Months M32.19 - Other organ or system involvement in systemic lupus erythematosus Complete Blood Count Auto Diff 6 Months M32.19 - Other organ or system involvement in systemic lupus erythematosus Medications: Refilled hydroxychloroquine (Plaquenil) 300 mg (1.5 x 200 mg) PO DAILY 135 tabs 1RF M32.9 - Systemic lupus erythematosus, unspecified Coding Level of Care Code Est Pt Level 4 (63203) Complex EM visit Add On G2211 Diagnoses Other systemic lupus erythematosus with other organ involvement M32.19 Systemic lupus erythematosus type: other Systemic lupus erythematosus organ involvement: other Long-term use of hydroxychloroquine Z79.899 Recurrent Clostridioides difficile infection A49.8
== END 2024-07-18 11:13 | disposition home or self-care (01) ==
PROVIDERS: PCP Internal Medicine; Visit Provider Student in an Organized Health Care Education/Training Program
DX: M32.19 Other organ or system involvement in systemic lupus erythematosus (principal); Z79.899 Other long term (current) drug therapy; A49.8 Other bacterial infections of unspecified site
CPT/HCPCS: 99214

== ENCOUNTER → 2024-07-18 10:46 | Outpatient (BNVA) | payer OTHER, SELFPAY | PROVIDERS: PCP Internal Medicine; Visit Provider Student in an Organized Health Care Education/Training Program ==

== ENCOUNTER 2025-01-23 12:04 | Outpatient (REF) | payer OTHER, SELFPAY ==
--- OUTSIDE RECORDS SUMMARY | 2025-01-23 12:51 | XMS_ITS | Encounter Summary ---
Author Organization [facility] Address [address] [place] [address] Care Team Providers Care Weaver Apprentice Name Role Phone Kelvin Blake MD Primary Care Provider [phone] Reason for Visit * Reason Comments Back Pain Encounter Details Date Type Department Care Team (Late st Contact Info) Description 01/22/2025 10:15 AM EDT Office Visit [facility] [address] [place] [address] Flip Joy PA [address] [place] [address] Chest wall pain (Primary Dx); Anemia, unspecified type; Hypothyroidism, unspecified type; Mixed hyperlipidemia; Essential hypertension Social History Tobacco Use Types Packs/Day Years Used Date Smoking Tobacco: Never Smokeless Tobacco: Never Tobacco Cessation:Counseling Given: Not Answered Alcohol Use Standard Drinks/Week Comments No 0 (1 standard drink = 0.6 oz pur e alcohol) Comments No Sex and Gender Information Value Date Recorded Sex Assigned at Not on file Legal Sex Female 5:38 AM EST Gender Identity Not on file Sexual Orientation Not on file documented as of this encounter Last Filed Vital Signs Vital Sign Reading Time Taken Comments Blood Pressure 118/62 01/22/2025 10:22 AM EDT Pulse 64 01/22/2025 10:22 AM EDT Temperature - - Respiratory Rate 16 01/22/2025 10:22 AM EDT Oxygen Saturation - - Inhaled Oxygen Concentration - - Weight 68 kg (150 lb) 01/22/2025 10:22 AM EDT Height - - Body Mass Index 26.57 04/15/2024 8:05 AM EDT documented in this encounter Ordered Prescriptions Prescription Sig Dispense Quantity Refills Last Filled Start Date End Date metoprolol tartrate (LOPRESSOR) 25 mg tablet Take 0.5 tablets (12.5 mg total) by mouth 1 (one) time each day. 45 each 1 01/22/2025 losartan (COZAAR) 100 mg tablet Take 0.5 tablets (50 mg total) by mouth 2 (two) times a day. 90 each 1 01/22/2025 5 predniSONE (DELTASONE) 20 mg tablet Take 3 tabs (60mg) daily for 5 days, then take 2 tabs (40mg) daily for 2 days, then take 1 tab (20mg) daily for 2 days. 21 tablet 01/22/2025 documented in this encounter Progress Notes * TARAN Garay - 01/22/2025 10:15 AM EDT CHIEF COMPLAINT: Back Pain IDENTIFIER: Natasha Mera is a 50 y.o. old female. HPI: Natasha Mera presents secondary to follow-up chronic conditions. History of hypertension, hyperlipidemia, hypothyroidism, SLE. Last seen 09/12/2024 for blood pressure check. No changes to blood pressure medicine. She reports right-sided posterior inferior chest wall pain. This started approximately 2 months agowithout any preceding injury. 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 She tried Motrin without much relief. She denies anything worsening her pain.There is no radiation of pain. Pain is constant 6 out of 10 in intensity. HTN: Losartan 100 mg daily, Lopressor 12.5 mg daily. Bp is well controlled. Denies dyspnea. She reports chest wall pain. HLD: Lipitor 20 mg nightly. Lab Results Component Value Date CHOL 212 (H) 11/27/2024 TRIG 65 11/27/2024 HDL 64 11/27/2024 LDLCALC 135 (H) 11/27/2024 VLDL 13 11/27/2024 NONHDLC 148 (H) 11/27/2024 CHOLHDL 3.3 11/27/2024 Lab Results Component Value Date NA 139 01/06/2025 K 4.0 01/06/2025 CL 111 (H) 01/06/2025 CO2 22 01/06/2025 GLUCOSE 90 01/06/2025 BUN 14 01/06/2025 CREATININE 0.66 01/06/2025 CALCIUM 8.7 01/06/2025 PROT 7.9 09/12/2024 ALBUMIN 3.4 01/06/2025 BILITOT 0.6 09/12/2024 AST 22 09/12/2024 ALT 20 09/12/2024 PHOS 3.6 01/06/2025 ALKPHOS 83 09/12/2024 EGFR 108 01/06/2025 Hypothyroidism: Levothyroxine 25 mcg daily. She is not taking currently. SLE: She sees nephrology and rheumatology. Off hydroxychloroquine for a few months. ROS: See HPI for pertinent positives and detailed description. Cardiovascular: Denies palpitations, chest pain. 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 Palpitations 07/21/2019 Snoring 12/30/2018 Essential hypertension 08/24/2017 Degenerative cervical disc 12/29/2015 Microhematuria 08/12/2013 Hypothyroid 09/26/2011 Maternal syphilis, 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/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 Systemic lupus erythematosus (CMS/HCC V24, CMS/HCC V28) 07/21/2005 Past Surgical History: Procedure Laterality Date BREAST BIOPSY Right 01/2020 PROCEDURE: OK BIOPSY BREAST OPEN INCISIONAL; COMMENT: LYMPH NODE-FNA BREAST BIOPSY Right 2004 PROCEDURE: BX BREAST; PERC NEEDLE CORE W/IMAG GUID; COMMENT: negative BREAST LUMPECTOMY PROCEDURE:BREAST LUMPECTOMY;COMMENT:benign lump BREAST SURGERY Right 2005 PROCEDURE: OK UNLISTED PROCEDURE BREAST; COMMENT: RT SECTION PROCEDURE: SECTION SECTION PROCEDURE: OK DELIVERY ONLY; COMMENT: x3 SECTION 02/2010 PROCEDURE: HISTORICAL DELIVERY; COMMENT: 32 weeks, severe preeclampsia, lupus flare COLONOSCOPY 09/10/2020 PROCEDURE: HISTORICAL COLONOSCOPY; COMMENT: Visually normal, biopsies obtained from ascending colonand descending colon: Biopsies normal. FOOT SURGERY Left 2017 PROCEDURE: HISTORICAL FOOT SURGERY; COMMENT: bunion, hammertoe surgery OTHER SURGICAL HISTORY PROCEDURE: OK LIG/TRNSXJ FLP TUBE ABDL/VAG APPR UNI/BI UPPER GASTROINTESTINAL ENDOSCOPY 09/10/2020 PROCEDURE: OK UPPER GI ENDOSCOPY PERFORMED; COMMENT: Visually normal, duodenal biopsies obtained toevaluate chronic diarrhea: Biopsies normal. SOCIAL HISTORY: Social History Tobacco Use Smoking status: Never Smokeless tobacco: Never Substance Use Topics Alcohol use: No FAMILY HISTORY: Family History Problem Relation Name Age of Onset Cancer Mother's Sister Cancer Mother's Brother Strabismus Sister Other (Other: Other) Sister myopia Hypertension Father Other (Other: lupus) Paternal Grandfather Breast cancer Aunt m 40s maternal Colon cancer Uncle 50.00 mat side Uterine cancer Mother's side aunt Breast cancer Aunt 40.00 mat Blindness Neg Hx Cataracts Neg Hx Glaucoma Neg Hx Macular degeneration Neg Hx Ovarian cancer Neg Hx Family Status Relation Name Status Mat Aunt (Not Specified) breast cancer Mat Uncle (Not Specified) colon Sister Alive Father Alive PGF Aunt m 40s Alive Uncle (Not Specified) Mother's sandra (Not Specified) Aunt (Not Specified) Neg Hx (Not Specified) Mother Alive Brother Alive MGF PGM Alive MGM Alive Son Alive Son Alive Daughter Alive No partnership data on file MEDICATIONS DISCONTINUED/REORDERED: Medications Discontinued During This Encounter Medication Reason levothyroxine (SYNTHROID, LEVOTHROID) 25 mcg tablet losartan (COZAAR) 100 mg tablet metoprolol tartrate (LOPRESSOR) 25 mg tablet Reorder losartan (COZAAR) 100 mg tablet Reorder ACTIVE MEDICATIONS: Outpatient Medications Marked as Taking for the 01/22/25 encounter (Office Visit) with TARAN [place] Medication Sig Dispense Refill acetaminophen (TYLENOL) 500 mg tablet Take 500 mg by mouth every 6 hours as needed. atorvastatin (LIPITOR) 20 mg tablet TAKE 1 TABLET BY MOUTH EVERYDAY AT BEDTIME 90 tablet 1 estradioL (ESTRACE) 0.01 % (0.1 mg/gram) vaginal cream Apply pv twice wkly 42.5 g 3 losartan (COZAAR) 100 mg tablet Take 0.5 tablets (50 mg total) by mouth 2 (two) times a day. 90 each 1 metoprolol tartrate (LOPRESSOR) 25 mg tablet Take 0.5 tablets (12.5 mg total) by mouth 1 (one) timeeach day. 45 each 1 [DISCONTINUED] levothyroxine (SYNTHROID, LEVOTHROID) 25 mcg tablet Take 1 tablet (25 mcg total) by mouth 1 (one) time each day. 90 each 1 [DISCONTINUED] losartan (COZAAR) 100 mg tablet Take 1 tablet (100 mg total) by mouth 1 (one) time each day. 90 each 1 [DISCONTINUED] losartan (COZAAR) 100 mg tablet Take 0.5 tablets (50 mg total) by mouth 2 (two) times a day. ALLERGIES: No Known Allergies PHYSICAL EXAM: Visit Vitals BP 118/62 Pulse 64 Resp 16 Wt 68 kg (150 lb) BMI 26.57 kg/m?? OB Status Postmenopausal Smoking Status Never BSA 1.71 m?? The patient is overweight. Approaches towards weight loss are encouraged per recommendations below: -Reviewed reduction and fatty/greasy/fast foods, increased aerobic exercise, and eating 4-5 small meals consistently throughout the day General: Alert, calm, no acute distress. HEENT: Normocephalic/atraumatic, EOMI. Skin: Warm, moist. Cardiovascular: Regular rate and rhythm. No murmurs, rubs, or gallops Lungs: CTA, no crackles, wheezes or rhonchi. Musculoskeletal: TTP posterior inferior chest wall. Negative Hawking's, Neer's. No winging of scapula. Neuro: COA x3. Psych: mood and affect appropriate for situation IMAGING: NA IMPRESSION: 1. Chest wall pain 2. Anemia, unspecified type 3. Hypothyroidism, unspecified type 4. Mixed hyperlipidemia 5. Essential hypertension PLAN: Right-sided chest wall pain: Seems to be musculoskeletal related possibly costochondritis. Will check x-ray for walking pneumonia. Provided with prednisone taper. If no improvement consider physiatryreferral. HTN: Blood pressure is well-controlled. Continue losartan 100 mg daily, Lopressor 12.5 mg daily. Follow low-sodium diet. HLD: Lipids elevated at last check. Remain on Lipitor 20 mg nightly. Follow low- fat diet. Update LFTs today. Hypothyroidism: Patient discontinued this. Will recheck TSH. SLE: She is off hydroxychloroquine. On wondering if this may be related to her pain that she is having. She should follow back up with her banquet kitchen supervisor. We have discussed the above medication(s) at length. I have explained the indications as well as common side effects and risks. The patient understands and accepts these risks and wishes to proceed with the pharmacological treatment. All of the patient's questions were answered at this time. Pt voices understanding and is in agreement with the above plan. Symptoms and/or concerns that should warrant emergency evaluation/treatment have been discussed. Follow up evaluation will be based upon the plan as stated. If any questions should arise in the interim/future please contact the officefor assistance. Medication and lab orders: Orders Placed This Encounter Procedures XR Chest 2 Views Vitamin B12 and folate Iron and TIBC Occult blood stool, guaiac Hepatic function panel Thyroid stimulating hormone with reflex to free t4 and free t3 Other orders: None I have maintained a long-term, longitudinal relationship with this patient leading to the extensivework up, and management associated with the medical care of this patient. TARAN Garay on 01/22/2025 at 11:55 AM EDT documented in this encounter Plan of Treatment Upcoming Encounters Date Type Department Care Team (Late st Contact Info) Description 03/30/2025 2:10 PM EDT Appointment Radiology Department [address] [address] 07/24/2025 10:00 AM EST Office Visit Internal Medicine - [address] [address] Flip Joy PA [address] [place] [id number] 09/01/2025 4:15 PM EST Office Visit Nephrology - [facility] [address] [place] [address] Nael Saravia MD [address] [place] [id number] Scheduled Orders Name Type Priority Associated Diagnoses Orde r Schedule Occult blood stool, guaiac Lab Routine Anemia, unspecified type 1 Occurrences starting 01/22/2025 until 01/22/2026 documented as of this encounter Results * XR Chest 2 Views (01/22/2025 11:03 AM EDT) Anatomical Region Laterality Modality Body Radiographic Ewelina ging 01/22/2025 5:46 PM EDT Impressions 01/22/2025 5:46 PM EDT No acute cardiopulmonary process. -------- FINAL REPORT -------- Dictated By: Rose Marie Christianson Dictated Date: 01/22/2025 17:46 ET Assigned Physician: Rose Marie Christianson Reviewed and Electronically Signed By: Rose Marie Christianson Signed Date: 01/22/2025 17:46 ET Workstation ID: [id number] Transcribed By: Self Edit Transcribed Date: 01/22/2025 17:46 ET Narrative 01/22/2025 5:46 PM EDT HISTORY: right sided posterior chest wall pain TECHNIQUE: PA and lateral radiographs of the chest COMPARISON: Chest radiograph from 09/12/2024 FINDINGS: There is a normal cardiomediastinal silhouette. The lungs are clear. The osseous structures are intact. ??Surgical paul overlying the right upper quadrant. Procedure Note Rose Marie Christianson MD - 01/22/2025 HISTORY: right sided posterior chest wall pain TECHNIQUE: PA and lateral radiographs of the chest COMPARISON: Chest radiograph from 09/12/2024 FINDINGS: There is a normal cardiomediastinal silhouette. The lungs are clear. Theosseous structures are intact. Surgical paul overlying the right upperquadrant. IMPRESSION: No acute cardiopulmonary process. -------- FINAL REPORT -------- Dictated By: Rose Marie Christianson Dictated Date: 01/22/2025 17:46 ET Assigned Physician: Rose Marie Christianson Reviewed and Electronically Signed By: Rose Marie Christianson Signed Date: 01/22/2025 17:46 ET Workstation ID: [id number] Transcribed By: Self Edit Transcribed Date: 01/22/2025 17:46 ET Flip CHIRINOS IMG XR PROCEDURES Final Result * Thyroid stimulating hormone with reflex to free t4 and free t3 (01/22/2025 10:54 AM EDT) [facility] TSH 3.58 0.40 - 4.00 mcIU/mL LAB CHEMISTRY METHOD 01/22/2025 3:11 PM EDT [facility] Blood Venous blood specimen / Unknown Venipuncture / Unknown 01/22/2025 10:54 AM EDT 01/22/2025 10:54 AM EDT Flip CHIRINOS LAB BLOOD ORDERABLES Fi nal Result [facility] [address] [place] [address], [place] [phone] * Hepatic function panel (01/22/2025 10:54 AM EDT) Total Protein 7.4 6.0 - 8.0 g/dL LAB CHEMISTRY METHOD 01/22/2025 2:39 PM EDT [facility] Albumin 3.8 3.2 - 5.0 g/dL LAB CHEMISTRY METHOD 01/22/2025 2:39 PM EDT [facility] Total Bilirubin 0.5 0.0 - 1.4 mg/dL LAB CHEMISTRY METHOD 01/22/2025 2:39 PM EDT [facility] Bilirubin, Direct 0.1 0.0 - 0.3 mg/dL LAB CHEMISTRY METHOD 01/22/2025 2:39 PM EDT [facility] Bilirubin, Indirect 0.4 0.0 - 1.1 mg/dL LAB CHEMISTRY METHOD 01/22/2025 2:39 PM EDT [facility] ALT (SGPT) 28 10 - 60 unit/L LAB CHEMISTRY METHOD 01/22/2025 2:39 PM EDT [facility] AST (SGOT) 20 10 - 42 unit/L LAB CHEMISTRY METHOD 01/22/2025 2:39 PM EDT [facility] Alkaline Phosphatase 90 42 - 121 unit/L LAB CHEMISTRY METHOD 01/22/2025 2:39 PM EDT [facility] Blood Venous blood specimen / Unknown Venipuncture / Unknown 01/22/2025 10:54 AM EDT 01/22/2025 10:54 AM EDT Flip CHIRINOS LAB BLOOD ORDERABLES Fi nal Result Performing Organization Address City/[facility]/ZIP Co de Phone Number [facility] [address] [place] [address], [place] [phone] * Iron and TIBC (01/22/2025 10:54 AM EDT) Iron 89 40 - 150 mcg/dL LAB CHEMISTRY METHOD 01/22/2025 2:39 PM EDT [facility] TIBC 315 250 - 450 mcg/dL LAB CHEMISTRY METHOD 01/22/2025 2:39 PM EDT [facility] Iron Saturation 28 15 - 50 % LAB CHEMISTRY METHOD 01/22/2025 2:39 PM EDT [facility] Blood Venous blood specimen / Unknown Venipuncture / Unknown 01/22/2025 10:54 AM EDT 01/22/2025 10:54 AM EDT Flip CHIRINOS LAB BLOOD ORDERABLES Fi nal Result Performing Organization Address City/[facility]/ZIP Co de Phone Number [facility] [address] [place] [address], [place] [phone] * Vitamin B12 and folate (01/22/2025 10:54 AM EDT) Vitamin B-12 366 250 - 900 pcg/mL LAB CHEMISTRY METHOD 01/22/2025 2:39 PM EDT [facility] Folate 5.6 2.8 - 17.0 ng/ml LAB CHEMISTRY METHOD 01/22/2025 2:39 PM EDT [facility] Blood Venous blood specimen / Unknown Venipuncture / Unknown 01/22/2025 10:54 AM EDT 01/22/2025 10:54 AM EDT Flip CHIRINOS LAB BLOOD ORDERABLES Fi nal Result [facility] [address] [place] [address], documented in this encounter Visit Diagnoses Diagnosis Chest wall pain- Primary Painful respiration Anemia, unspecified type Hypothyroidism, unspecified type Mixed hyperlipidemia Essential hypertension Unspecified essential hypertension Chest wall pain Painful respiration documented in this encounter Discontinued Medications Medication Sig Discontinue Reason Start Date End Da te levothyroxine (SYNTHROID, LEVOTHROID) 25 mcg tablet Take 1 tablet (25 mcg total) by mouth 1 (one) time each day. 09/12/2024 01/22/2025 losartan (COZAAR) 100 mg tablet Take 1 tablet (100 mg total) by mouth 1 (one) time each day. 09/12/2024 01/22/2025 metoprolol tartrate (LOPRESSOR) 25 mg tablet TAKE 1/2 TABLET TWICE A DAY BY MOUTH Reorder 03/21/2024 01/22/2025 losartan (COZAAR) 100 mg tablet Take 0.5 tablets (50 mg total) by mouth 2 (two) times a day. Reorder 01/22/2025 01/22/2025 documented as of this encounter Historical Medications * This list may reflect changes made after this encounter. losartan (COZAAR) 100 mg tablet Take 0.5 tablets (50 mg total) by mouth 2 (two) times a day. 01/22/2025 01/22/2025 added in this encounter Care Teams Weaver Apprentice Relationship Specialty Start Date End Date Kelvin Blake MD [address] [place] [address] PCP - General Internal Medicine 12/14/21 documented as of this encounter
[2025-01-23 13:08] LABS: MANUAL DIFF FLAG NO
[2025-01-23 13:14] LABS: Basophils Percent Auto 0.6 % (0-2); Eosinophils Percent Auto 0.5 % (0-4); Hemoglobin 12.7 g/dl (12.0-16.0); Imm Gran Abs Auto 0.01 X10*3/uL (0.00-0.03); Imm Gran Pct Auto 0.2 % (0.0-0.4); Lymphocytes Absolute Auto 1.2 X10*3/uL (1.2-4.9); Lymphocytes Percent Auto 18.4 % (20-40); Mean Corpuscular HGB Conc 34.3 g/dl (31.0-35.0); Mean Corpuscular Hemoglobin 30.5 pg (27.0-33.0); Mean Corpuscular Volume 88.9 fL (80.0-98.0); Monocytes Absolute Auto 0.3 X10*3/uL (0.1-1.2); Monocytes Percent Auto 4.9 % (2-11); Neutrophils Absolute Auto 4.8 x10*3/uL (2.0-8.3); Neutrophils Percent Auto 75.4 % (45-73); Platelet Count 278 X10*3/uL (160-400); Red Blood Count 4.16 X10*6/uL (4.20-5.50); Red Cell Distribution Width 11.9 % (11.0-16.0); White Blood Count 6.3 X10*3/uL (4.8-10.8)
[2025-01-23 13:24] LABS: Appearance Urine Clear; Color Urine Yellow; Glucose Urine UA Negative (Negative); Leukocyte Esterase Urine Negative (Negative); Nitrite Urine Negative (Negative); Urine Blood Negative (Negative); Urine Ketones Negative (Negative); Urine Protein Negative (Neg-Trace)
[2025-01-23 13:29] LABS: Bacteria Urine None Seen (None Seen); Hyaline Casts Urine 0-2 /LPF (0-2); RBC Urine 0-2 /HPF (0-2); Squamous Epithelial Cell Urine 0-2 /HPF (0-2); WBC Urine 0-5 /HPF (0-5)
[2025-01-23 13:54] LABS: Alanine Aminotransferase 23 U/L (0-31); Albumin Level 4.6 g/dL (3.5-5.0); Alkaline Phosphatase 83 U/L (39-117); Anion Gap 9 (12-20); Aspartate Amino Transferase 23 U/L (5-31); Bilirubin Total 0.6 mg/dL (0.0-1.0); Blood Urea Nitrogen 11 mg/dL (9-16); C Reactive Protein 0.19 mg/dL (< or = 0.50); Calcium 9.6 mg/dL (8.4-10.2); Carbon Dioxide 27 mmol/L (22-29); Chloride 108 mmol/L (96-108); Estimated Glomerular Filt Rate > 60; Glucose Random 83 mg/dL (60-115); Potassium 4.2 mmol/L (3.3-5.1); Sodium 140 mmol/L (135-145); Total Protein 7.6 g/dL (6.5-8.0)
[2025-01-23 14:14] LABS: Creatinine Urine 55.12 mg/dL; Total Protein Urine Random < 7 mg/dL (<12)
[2025-01-23 14:15] LABS: Erythrocyte Sedimentation Rate 25 MM/HR (0-20)
[2025-01-26 14:29] LABS: Complement C3 134 mg/dL (83-193)
[2025-01-26 18:38] LABS: Anti DNA DS Antibody 4 IU/mL
== END 2025-01-23 12:05 | disposition home or self-care (01) ==
LOC: HO.10HDL 12:04
PROVIDERS: Visit Provider Student in an Organized Health Care Education/Training Program
DX: M32.19 Other organ or system involvement in systemic lupus erythematosus (principal)
CPT/HCPCS: 36415; 80053; 81001; 82570; 84156; 85025; 85652; 86140; 86160; 86225

== ENCOUNTER 2025-01-28 10:18 | Outpatient (AMB) | payer OTHER, SELFPAY ==
--- NOTE | 2025-01-28 10:22 | A.OFFVIS_ITS ---
Vital Signs 01/28/25 10:25 Height 5 ft 3 in Weight 147 lb 14.883 oz BMI 26.2 BP 124/80 Blood Pressure Location Lt brachial Position Sitting Pulse 82 Pulse Source Pulse Oximeter Pulse Oximetry (%) 98 Oxygen Delivery Method Room Air Intake Visit Reasons: SLE Intake Note: Patient presents for SLE follow up. Allergies No Known Allergies Allergy (Verified 01/28/25 10:24) Medication List - Last Reconciled 01/28/25 by Trinity Vieira MD acetaminophen (Tylenol Extra Strength) 500 mg PO Q6H PRN atorvastatin 20 mg PO QPM cyclobenzaprine 5 - 10 mg (0.5 - 1 x 10 mg) PO BEDTIME PRN estradiol 0.01%(0.1mg/gram) 1 g vaginal 2XW hydroxychloroquine (Plaquenil) 300 mg (1.5 x 200 mg) PO DAILY ibuprofen (Motrin IB) 800 mg PO DAILY levothyroxine 25 mcg PO DAILY losartan 100 mg PO DAILY metoprolol tartrate 12.5 mg (1/2 x 25 mg) PO DAILY prednisone 5 mg PO DAILY PRN vancomycin 250 mg PO QID HPI Comments Details: Patient is a 50-year-old female with hyperlipidemia, hypothyroidism, hypertension, recurrent C diff infection and SLE complicated by biopsy-proven class 2 lupus nephritis here today for follow up Interval History: Patient last seen 07/18/[address] Johnston. At that time she was following up for her SLE doing reasonably well overall. No changes made to her medications Patient has not been taking the plaquenil for the past 8 months Has been noticing increased pain in her hands and shoulders for the past 1 month Rheumatologic History: Onset 2001 with fever, arthritis, skin rash, throbocytopenia (+GABE ++DsDNA, low C3, low C4) 04/2007: abdominal pains, fever, headaches with some CSF blood - ? Source 02/2010: flare of SLE vs pre-eclampsia.Renal biopsy 12/21: Class 2 lupus nephritis(mesangial proliferative) Proteinuria developed; remains on hydroxychlorquine Hydroxychloroquine had to be stopped in 2014 because of loose stools and abdominal pains. Restarted 01/27 with SLE flare - stopped again 2019; restarted 2020 Current Rheumatology Medication(s): Plaquenil 300 mg daily (not taking) [facility] Medical History Chest pain delivery delivered Skin laxity SLE (systemic lupus erythematosus) Hypothyroidism Degenerative cervical disc Essential hypertension Snoring Palpitation Chronic diarrhea Lymphadenopathy Surgical History H/O foot surgery History of cholecystectomy Family History Maternal Uncle Colon cancer Maternal Aunt Breast cancer Uterine cancer Mother Lymph node cancer Social History Household Members: Spouse, Children and Other Household Members Other:: Mother Alcohol intake: never Patient Tobacco Use Status: Never used Tobacco Current occupational status: employed 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,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 Review of Systems Const Details: Review of Systems Constitutional: Denies fever, chills, weight loss ENT: Denies vision changes, eye pain or eye redness, dental caries, dry mouth GI: Denies nausea, vomiting, diarrhea, abdominal pain, change in BM Pulm: Denies SOB, ONTIVEROS, hemoptysis, wheezing Cards: Denies chest pain, palpitations Skin: Denies Raynaud's, rash, nail changes, photosensitivity, FOUNDRY MOLDER: Denies headaches, weakness, paresthesias, recurrent falls MSK: as per HPI All other systems reviewed and are unremarkable except noted above Physical Exam Vital Signs: Last Vital Signs Pulse 82 01/28/25 10:25 BP 124/80 01/28/25 10:25 Pulse Ox 98 01/28/25 10:25 Oxygen Delivery Method Room Air 01/28/25 10:25 BMI result Body Mass Index 26.2 Vital signs reviewed Physical Examination CONSTITUITIONAL Patient alert and cooperative. Well appearing and in no apparent painful distress HEENT Conjunctiva and sclera clear. No lymphadenopathy. CHEST/RESPIRATORY SYSTEM Normal respiratory effort and able to speak in complete sentences. Clear to auscultation bilaterally. No crackles, rales, rhonchi, wheezes heard. CARDIAC SYSTEM Regular rate and rhythm. S1 and S2 heard no murmurs. Radial pulses intact bilaterally MSK Hands * Right Hand: Able to make a fist. No swelling. No deformities noted. TTP of the 1st CMC * Left Hand: Able to make a fist. No swelling. No deformities noted. TTP of the 1st CMC Wrists * Right Wrist: Full ROM. 70 degrees of wrist flexion, 80 degrees of wrist extension. No swelling or TTP * Left Wrist: Full ROM. 70 degrees of wrist flexion, 80 degrees of wrist extension. No swelling or TTP Elbows * Right Elbow: Full ROM. No swelling or TTP. No TTP of the medial and lateral epicondyles * Left Elbow: Full ROM. No swelling or TTP. No TTP of the medial and lateral epicondyles Shoulders * Right shoulder: Full ROM. No swelling noted. TTP of the AC joint. No TTP subacromial bursa or posterior shoulder * Left shoulder: Full ROM. No swelling noted. TTP of the AC joint. No TTP subacromial bursa or posterior shoulder Knees * Right knee: Full ROM. No swelling noted. No TTP of the knee joint lie or pes anserine bursa * Left knee: Full ROM. No swelling noted. No TTP of the knee joint lie or pes anserine bursa. Ankles * Right ankle: Good ankle dorsiflexion and plantar flexion. No swelling. No TTP of the ankle joint * Left ankle: Good ankle dorsiflexion and plantar flexion. No swelling. No TTP of the ankle joint Feet * Right foot: Negative squeeze test * Left foot: Negative squeeze test Tender points? * No tenderness to palpation of the bilateral trapezius, supraspinatus, anterior costochondral junctions, bilateral suboccipital muscle insertions SKIN No rashes Results Reviewed Results Reviewed: Laboratory Tests 07/15/24 01/23/25 11:31 12:10 WBC 6.3 RBC 4.16 L Hgb 12.7 Hct 37.0 Plt Count 278 ESR 16 25 H Sodium 140 Potassium 4.2 Chloride 108 Carbon Dioxide 27 BUN 11 Creatinine 0.69 AST 23 ALT 23 Alkaline Phosphatase 83 C-Reactive Protein < 0.10 0.19 Laboratory Tests 07/15/24 01/23/25 11:31 12:10 Double Strand DNA Ab 2 4 Complement C3 127 134 Complement C4 23 23 Laboratory Tests 01/23/25 12:10 Urine Color Yellow Urine Protein Negative Urine Blood Negative U Random Total Protein < 7 Assessment & Plan Assessment & Plan (1) SLE (systemic lupus erythematosus): Comment: Onset 2001 with fever, arthritis, skin rash, throbocytopenia (+GABE ++DsDNA, low C3, low C4) 04/2007: abdominal pains, fever, headaches with some CSF blood - ? Source 02/2010: flare of SLE vs pre-eclampsia. Renal biopsy 12/21: Class 2 lupus nephritis(mesangial proliferative) Proteinuria developed; remains on hydroxychlorquine Hydroxychloroquine had to be stopped in 2014 because of loose stools and abdominal pains. Restarted 01/27 with SLE flare - stopped again 2019; restarted 2020 Code(s): M32.9 - Systemic lupus erythematosus, unspecified Category: Medical Qualifiers: Systemic lupus erythematosus type: other Systemic lupus erythematosus organ involvement: other Qualified Code(s): M32.19 - Other organ or system involvement in systemic lupus erythematosus Plan: #SLE Patient is a 50 y.o. female with SLE c/b lupus nephritis class II presents for follow up. No active SLE noted on examination but she does note that she took 1 0 mg of prednisone yesterday. She has been off her Plaquenil for several months and is probably having a return of her symptoms of lupus. 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 (current) drug therapy Category: Medical Plan: #Long-term Use of Hydroxychloroquine Discussed with patient the risks and benefits of hydroxychloroquine in managing the rheumatic condition Benefits include: - Reduced pain, reduce mortality, maintenance of remission and reduction of flares Risks include: - GI upset, skin hyperpigmentation, retinal toxicity (especially after more than 5 years of use), myopathy Advised yearly ophthalmology visits Plan I spent 30 minutes reviewing the record and labs, taking a history, examining the patient, discussing the treatment plan, ordering diagnostic work up and documenting in the medical record Orders: Orders XR hand LT min 3V Today M32.19 - Other organ or system involvement in systemic lupus erythematosus, Z79.899 - Other chcf (current) drug therapy XR shoulder RT min 2V Today M32.19 - Other organ or system involvement in systemic lupus erythematosus, Z79.899 - Other termite exterminator helper (current) drug therapy Complement C4 4 Months - Other organ or system involvement in systemic lupus erythematosus Comprehensive Met. Panel 4 Months - Other organ or system involvement in systemic lupus erythematosus C Reactive Protein 4 Months . - Other organ or system involvement in systemic lupus erythematosus Erythrocyte Sedimentation Rate 4 Months . - Other organ or system involvement in systemic lupus erythematosus Protein Creatinine Ratio, Ur 4 Months . - Other organ or system involvement in systemic lupus erythematosus XR hand RT min 3V Today - Other organ or system involvement in systemic lupus erythematosus, Z79.899 - Other termite exterminator helper (current) drug therapy XR shoulder LT min 2V Today - Other organ or system involvement in systemic lupus erythematosus, Z79.899 - Other termite exterminator helper (current) drug therapy Complement C3 4 Months - Other organ or system involvement in systemic lupus erythematosus Complete Blood Count Auto Diff 4 Months - Other organ or system involvement in systemic lupus erythematosus UA w Microscopic 4 Months - Other organ or system involvement in systemic lupus erythematosus Anti DNA DS Antibody 4 Months . - Other organ or system involvement in systemic lupus erythematosus Medications: Refilled prednisone 5 mg PO DAILY PRN 30 tabs 0RF lupus flare 2.9 - Systemic lupus erythematosus, unspecified hydroxychloroquine (Plaquenil) 300 mg (1.5 x 200 mg) PO DAILY 135 tabs 1RF .9 - Systemic lupus erythematosus, unspecified Coding Level of Care Code Est Pt Level 4 (52804) Complex EM visit Add On G2211 Diagnoses Other systemic lupus erythematosus with other organ involvement Systemic lupus erythematosus type: other Systemic lupus erythematosus organ involvement: other Long-term use of hydroxychloroquine Z79.899
[2025-01-28 10:25] VITALS: BP 124/80; PULSE 82; O2SAT 98; BMI 26.2
--- OUTSIDE RECORDS SUMMARY | 2025-01-28 11:39 | XMS_ITS | Clinical Summary ---
Author Organization 175 [facility] Address [address] [place] [address] Phone Care Team Providers Care Supervisor Dumping Name Role Phone Kelvin Blake MD Primary Care Provider [phone] Allergies No known active allergies Medications acetaminophen (TYLENOL) 500 mg tablet Take 500 mg by mouth every 6 hours as needed. Active estradioL (ESTRACE) 0.01 % (0.1 mg/gram) vaginal cream Apply pv twice wkly 42.5 g 3 10/06/19 25 Active atorvastatin (LIPITOR) 20 mg tablet TAKE 1 TABLET BY MOUTH EVERYDAY AT BEDTIME 90 tablet 1 11/25/19 25 Active predniSONE (DELTASONE) 20 mg tablet Take 3 tabs (60mg) daily for 5 days, then take 2 tabs (40mg) daily for 2 days, then take 1 tab (20mg) daily for 2 days. 21 tablet 01/23/20 25 025 Active losartan (COZAAR) 100 mg tablet Take 0.5 tablets (50 mg total) by mouth 2 (two) times a day. 90 each 1 01/23/20 25 025 Active metoprolol tartrate (LOPRESSOR) 25 mg tablet Take 0.5 tablets (12.5 mg total) by mouth 1 (one) time each day. 45 each 1 01/23/20 25 025 Active hydroxychloroq uine (PLAQUENIL) 200 mg tablet Take 1.5 tablets (300 mg total) by mouth 1 (one) time each day. 06/01/20 025 Discontinued omeprazole (PriLOSEC) [address] capsule Take 1 Capsule by mouth daily for 30 days. 11/27/19 025 Discontinued metoprolol tartrate (LOPRESSOR) 25 mg tablet TAKE 1/2 TABLET TWICE A DAY BY MOUTH 03/21/20 025 Discontinued(Re order) levothyroxine (SYNTHROID, LEVOTHROID) 25 mcg tablet Take 1 tablet (25 mcg total) by mouth 1 (one) time each day. 90 each 1 09/12/19 25 025 Discontinued losartan (COZAAR) 100 mg tablet Take 1 tablet (100 mg total) by mouth 1 (one) time each day. 90 each 09/12/19 025 Discontinued bezlotoxumab (Zinplava) injection Infuse 27.36 mL (684 mg total) into a venous catheter. 03/11/20 025 Discontinued losartan (COZAAR) 100 mg tablet Take 0.5 tablets (50 mg total) by mouth 2 (two) times a day. 01/23/20 025 Discontinued(Re order) Active Problems Problem Noted Date Diagnosed Date Degenerative disc disease, lumbar 09/15/2024 Left arm pain 2024 Headache 09/28/2023 Dyspareunia in female 03/12/2023 Overview (06/09/2024): Last Assessment & Plan: Well managed with Estrace. Continue every other day. She agrees. Hyperlipidemia 12/22/2022 Chest pain 06/21/2022 Overview (06/09/2024): Last Assessment & Plan: Patient continues to report chest pain which is sharp and pinching in nature which lasts a few seconds and not associated with exertion. She also had an episode of left arm discomfort not that long ago in relation to high levels of stress. We will update a stress echocardiogram. I will let her know the results when available. Vaginal lump 08/25/2021 Overview (06/09/2024): Last Assessment & Plan: I counseled Rich that this lump is actually hard stool in the colon. She admitted that she has been having hard small stools recently and was relieved. I encouraged her to work on constipation with water, fiber, and OTC laxatives prn. She voiced understanding and agreed. 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 Implantable cardiac chip recommended but the patient declined. Last Assessment & Plan: Patient is reporting increased palpitations lately which occurred first thing in the morning prior to her taking her morning dose of metoprolol. Of note she has started drinking coffee which she has never had before in her life. This is likely the cause of her increased palpitations. Given her baseline bradycardia I do not feel that increasing her metoprolol is appropriate. She will cut back on her caffeine and continue to monitor her symptoms. She will let me know if things do not settle down. Snoring 12/30/2018 Overview (06/09/2024): 12/2018 Home Sleep Study did not reveal sleep apnea or nocturnal hypoxia. Essential hypertension 08/24/2017 Overview (06/09/2024): Last Assessment & Plan: Patient's blood pressure is well-controlled with a reading today 120/72. She will continue with losartan and metoprolol as prescribed. Degenerative cervical disc 12/29/2015 Microhematuria 08/12/2013 Overview (06/09/2024): Dr. Rivera: negative cysto 08/26. 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 Source 02/2010: flare of SLE vs pre-eclampsia.Renal biopsy 12/21: Class 2 lupus nephritis(meangial proliferative) Proteinuria developed; remains on hydroxychlorquine. Eye exam OK 02/20 Hydroxychloroquine had to be stopped in 2014 because of loose stools and abdominal pains. Restarted 01/27 with SLE flare - stopped again 2019 Encounters Date Type Department Care Team Description 01/22/2025 10:58 AM EDT - 01/22/2025 11:59 PM EDT [facility] [address] [place], [place] [address], [place] [phone] Chest wall pain Discharge Disposition: Home or Self Care 01/22/2025 10:15 AM EDT Office Visit Internal Medicine - [address] [phone] Flip Joy PA Chest wall pain (Primary Dx); Anemia, unspecified type; Hypothyroidism, unspecified type; Mixed hyperlipidemia; Essential hypertension 01/20/2025 [address]s [address], [place] [phone] Kelvin Blake MD Back Pain 01/06/2025 4:15 PM EDT Office Visit Nephrology - [address] [phone] Nael Saravia MD Systemic lupus erythematosus, unspecified SLE type, unspecified organ involvement status ([facility] V24, [facility] V28) (Primary Dx); Essential hypertension 12/24/2024 Telephone [facility]s - [address] [place] [address] Kelvin Blake MD labs orders from Last 3 Months Immunizations Name Administration Dates Next Due Hepatitis B ([id number] , Recombivax HB-Adult) 19yo and older 09/15/2015,04/15/2015,03/15/2015 Influenza Quadravalent, MDCK , 0.5ml, with preservative (Flucelvax) 6mo and older 07/24/2017 Influenza trivalent, 0.5mL, preservative free (Fluarix; FluLaval; Fluzone) ages 6mo and older (Afluria) 3 years and older 07/12/2015,07/30/2014,05/21/2013,2011,04/19/2011,05/30/2010,05/14/2009,1 08/29/2007,05/15/2007,06/22/2006, 005 PPD Test 08/22/2005,03/17/2001,03/15/2001 [employer] SARS-CoV-2 COVID-19, mRNA, LNP-S, preservative free 01/10/2021,12/20/2020 Tdap Tetanus diptheria acell ular pertussis (Boostrix; Adacel) 7yo and older 03/10/2015 Varicella live (Varivax) 12m o and older 03/15/2015,06/28/2005 Surgical History Surgery Date Site/Laterality Comments SECTION PROCEDURE: SECTION BREAST LUMPECTOMY PROCEDURE:BREAST LUMPECTOMY;COMMENT:benign lump SECTION PROCEDURE: PA DELIVERY ONLY; COMMENT: x3 BREAST BIOPSY 01/2020 Right PROCEDURE: PA BIOPSY BREAST OPEN INCISIONAL; COMMENT: LYMPH NODE-FNA SECTION 02/2010 PROCEDURE: HISTORICAL DELIVERY; COMMENT: 32 weeks, severe preeclampsia, lupus flare OTHER SURGICAL HISTORY PROCEDURE: PA LIG/TRNSXJ FLP TUBE ABDL/VAG APPR UNI/BI FOOT SURGERY 2017 Left PROCEDURE: HISTORICAL FOOT SURGERY; COMMENT: bunion, mitch surgery UPPER GASTROINTESTINAL ENDOSCOPY 09/10/2020 PROCEDURE: PA UPPER GI ENDOSCOPY PERFORMED; COMMENT: Visually normal, duodenal biopsies obtained to evaluate chronic diarrhea: Biopsies normal. COLONOSCOPY 09/10/2020 PROCEDURE: HISTORICAL COLONOSCOPY; COMMENT: Visually normal, biopsies obtained from ascending colon and descending colon: Biopsies normal. BREAST BIOPSY 2004 Right PROCEDURE: BX BREAST; PERC NEEDLE CORE W/IMAG GUID; COMMENT: negative BREAST SURGERY 2004 Right PROCEDURE: PA UNLISTED PROCEDURE BREAST; COMMENT: RT Medical History Medical History Date Comments Lupus DX:Lupus Hypertension DX:Hypertension Thrombocytopenia, unspecifie d ([facility] V24) 08/22/2005 DX:Thrombocytopenia, unspeci fied (HCC) Anemia, unspecified 08/22/2005 DX:Anemia, u nspecified Systemic lupus erythematosus ([facility] V24, [facility] V28) 07/21/2005 DX:Systemic lupus erythemato damián (HCC); COMMENT: Onset 2001 with fever, arthritis, skin rash, throbocytopenia 04/2007: abdominal pains, fever, headaches with some CSF blood - ? source Unspecified disorder of thyroid DX:Unspecified disorder of thyroid Maternal syphilis, 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/22/2005 DX :Maternal syphilis, antepartum Microhematuria 08/12/2013 DX:Microhematuri a; COMMENT: Dr. Rivera Hypertension DX:Hypertension History of laparoscopic cholecystectomy 12/09/2020 DX:History of laparoscopic cholecystectomy; COMMENT: 09/2020 Family History Medical History Relation Name Comments Breast cancer Aunt 1 m 40s maternal Breast cancer Aunt 2 mat Hypertension Father Cancer Mother's Brother Cancer Mother's Sister Uterine cancer Mother's side aunt Other: lupus Paternal Grandfather Other: Other Sister myopia Strabismus Sister Colon cancer Uncle mat side Blindness Neg Hx Cataracts Neg Hx Glaucoma Neg Hx Macular degeneration Neg Hx Ovarian cancer Neg Hx Relation Name Status Comments Aunt 1 m 40s Alive Aunt 2 Brother Alive Daughter Alive Father Alive Maternal Grandfather Maternal Grandmother Alive Mother Alive Mother's Brother colon Mother's Sister breast cance r Mother's side Paternal Grandfather Paternal Grandmother Alive Sister Alive Son 1 Alive Son 2 Alive Uncle Social History Tobacco Use Types Packs/Day Years [...] on file Sexual Orientation Not on file Obstetrics History Last Filed Vital Signs Vital Sign Reading Time Taken Comments Blood Pressure 118/62 01/22/2025 10:22 AM EDT Pulse 64 01/22/2025 10:22 AM EDT Temperature 35.8 C (96.4 F) 08/12/2024 5:56 PM EST Respiratory Rate 16 01/22/2025 10:22 AM EDT Oxygen Saturation 99% 08/12/2024 5:56 PM EST Inhaled Oxygen Concentration - - Weight 68 kg (150 lb) 01/22/2025 10:22 AM EDT Height 160 cm (5' 3 ) 04/15/2024 8:05 AM EDT Body Mass Index 26.57 04/15/2024 8:05 AM EDT Plan of Treatment Upcoming Encounters Date Type Department Care Team (Late st Contact Info) Description 03/30/2025 2:10 PM EDT Appointment Radiology Department [address] [phone] 07/24/2025 10:00 AM EST Office Visit Internal Medicine - [address] [phone] Flip Joy PA [address] [place] [address] 09/01/2025 4:15 PM EST Office Visit Nephrology - [address] [phone] Nael Saravia MD [address] [facility] [address] [place] [address] Health Maintenance Due Date Last Done Comments Colorectal Cancer Screening: Colonoscopy 07/22/2022 Depression Screening 07/22/2022 Social Influencers of Health Screening 07/22/2022 COVID-19 Vaccine ( season) 2024 01/10/2021, 12/20/2020 Pneumococcal Vaccine: 50+ Years (2 of 2 - PCV) 2025 2017 Zoster Vaccines (1 of 2) 2025 03/15/2015, 06/13 DTaP,Tdap,and Td Vaccines (2 - Td or Tdap) 03/10/2025 03/10/2015 Influenza Vaccine (Season Ended) 2025 07/24/2017, 07/12/2015, 07/30/2014, Additional history exists Breast Cancer Screening 12/02/2025 12/03/19, 05/06/2022, 04/30/2021, Additional history exists Hypertension/CHF/CAD Annual BMP Blood Test 01/06/2026 01/06/2025, 09/12/2024, 11/27/2023 Cervical Cancer Screening: HPV 10/06/2029 10/06/2024, 04/20/2020 Cholesterol Screening (Lipid Panel) 11/27/2029 11/27/2024, 05/19/2024, 05/19/2024 Varicella Vaccines Aged Out 03/15/2015, 06/28/2005 No longer eligible based on patient's age to complete this topic Hepatitis B Vaccines Completed 09/15/2015, 04/15/2015, 03/15/2015 Pneumococcal Vaccine: Pediatrics (0 to 5 Years) and At-Risk Patients (6 to 64 Years) Aged Out 2017 No longer eligible based on patient's age to complete this topic HIV Screening Completed 10/06/2024, 03/12/2023 Hepatitis C Screening Completed 10/06/2024, 023 HIB Vaccines Aged Out No longer eligi ble based on patient's age to complete this topic HPV Vaccines Aged Out No longer eligi ble based on patient's age to complete this topic Hepatitis A Vaccines Aged Out No long er eligible based on patient's age to complete this topic IPV Vaccines Aged Out No longer eligi ble based on patient's age to complete this topic MMR Vaccines Aged Out No longer eligi ble based on patient's age to complete this topic Meningococcal ACWY Vaccine Aged Out N o longer eligible based on patient's age to complete this topic Meningococcal B Vaccine Aged Out No l onger eligible based on patient's age to complete this topic RSV Immunization Patients Under 20 months Aged Out No longer eligible based on patient's age to complete this topic Procedures Procedure Name Priority Date/Time Associated Diagnosis Comments XR CHEST 2 VIEWS Routine 01/22/2025 11:0 3 AM EDT Chest wall pain HEPATIC FUNCTION PANEL Routine 10:54 AM EDT Mixed hyperlipidemia IRON AND TIBC Routine 01/22/2025 10:54 AM EDT Anemia, unspecified type VITAMIN B12 AND FOLATE Routine 10:54 AM EDT Anemia, unspecified type THYROID STIMULATING HORMONE WITH REFLEX TO FREE T4 AND FREE T3 Routine 01/22/2025 10:54 AM EDT Hypothyroidism, unspecified type CBC WITH AUTO DIFFERENTIAL Routine 01/06/2025 9:54 AM EDT Systemic lupus erythematosus with other organ involvement, unspecified SLE type (CMS/HCC V24, CMS/HCC V28) CBC AND DIFFERENTIAL Routine 01/06/2025 9:54 AM EDT Systemic lupus erythematosus with other organ involvement, unspecified SLE type (CMS/HCC V24, CMS/HCC V28) RENAL FUNCTION PANEL Routine 01/06/2025 9:54 AM EDT Systemic lupus erythematosus with other organ involvement, unspecified SLE type (CMS/HCC V24, CMS/HCC V28) MICROALBUMIN CREATININE URINE RATIO Routine 01/06/2025 9:54 AM EDT Systemic lupus erythematosus with other organ involvement, unspecified SLE type (CMS/HCC V24, CMS/HCC V28) HM DIABETES EYE EXAM 01/01/2025 LIPID PANEL WITH REFLEX TO DIRECT LDL Routine 11/27/2024 10:19 AM EDT Hyperlipidemia, unspecified hyperlipidemia type HEPATITIS C ANTIBODY Routine 10/06/2024 10:29 AM EST Encounter for screening for viral disease HIV 1, 2 ANTIBODY, P24 ANTIGEN WITH REFLEX TO DIFFERENTIATION Routine 10/06/2024 10:29 AM EST Encounter for screening for viral disease HPV WITH REFLEX GENOTYPE Routine 10/06/2024 9:41 AM EST Encounter for annual physical examination excluding gynecological examination in a patient older than 17 years DIAGNOSTIC MAMMOGRAPHY INCLUDING CAD BILATERAL Routine 12/03/2023 10:28 AM EDT Localized enlarged lymph nodes Encounter for screening mammogram for malignant neoplasm of breast from Last 3 Months or Most Recently Relevant to Health Maintenance Results * XR Chest 2 Views (01/22/2025 [...] Signed Date: 01/22/2025 17:46 ET Workstation ID: [id number] Transcribed By: Self Edit Transcribed Date: 01/22/2025 17:46 ET Narrative 01/22/2025 5:46 PM EDT HISTORY: right sided posterior chest wall pain TECHNIQUE: PA and lateral radiographs of the chest COMPARISON: Chest radiograph from 09/12/2024 FINDINGS: There is a normal cardiomediastinal silhouette. The lungs are clear. The osseous structures are intact. Surgical paul overlying the right upper quadrant. Procedure [...] Signed Date: 01/22/2025 17:46 ET Workstation ID: [id number] Transcribed By: Self Edit Transcribed Date: 01/22/2025 17:46 ET Flip CHIRINOS IMG XR PROCEDURES Final Result * Thyroid stimulating hormone with reflex to free t4 and free t3 (01/22/2025 10:54 AM EDT) [facility] TSH 3.58 0.40 - 4.00 mcIU/mL LAB CHEMISTRY METHOD 01/22/2025 3:11 PM EDT [facility] Blood Venous blood specimen / Unknown Venipuncture / Unknown 01/22/2025 10:54 AM EDT 01/22/2025 10:54 AM EDT Flip CHIRINOS LAB BLOOD ORDERABLES Fi nal Result [facility] [address] [place] [address], [place] [phone] * Vitamin B12 and folate (01/22/2025 10:54 AM EDT) [facility] Vitamin B-12 366 250 - 900 pcg/mL LAB CHEMISTRY METHOD 01/22/2025 2:39 PM EDT [facility] Folate 5.6 2.8 - 17.0 ng/ml LAB CHEMISTRY METHOD 01/22/2025 2:39 PM EDT [facility] Blood Venous blood specimen / Unknown Venipuncture / Unknown 01/22/2025 10:54 AM EDT 01/22/2025 10:54 AM EDT Flip CHIRINOS LAB BLOOD ORDERABLES Fi nal Result [facility] [address] [place] [address], [place] [phone] * Iron and TIBC (01/22/2025 10:54 AM EDT) Pathologist [facility] Iron 89 40 - 150 mcg/dL LAB CHEMISTRY METHOD 01/22/2025 2:39 PM EDT [facility] TIBC 315 250 - 450 mcg/dL LAB CHEMISTRY METHOD 01/22/2025 2:39 PM EDT [facility] Iron Saturation 28 15 - 50 % LAB CHEMISTRY METHOD 01/22/2025 2:39 PM EDT [facility] Blood Venous blood specimen / Unknown Venipuncture / Unknown 01/22/2025 10:54 AM EDT 01/22/2025 10:54 AM EDT Flip CHIRINOS LAB BLOOD ORDERABLES Fi nal Result [facility] [address] [place] [address], * Hepatic function panel (01/22/2025 10:54 AM EDT) [facility] Total Protein 7.4 6.0 - 8.0 g/dL LAB CHEMISTRY METHOD 01/22/2025 2:39 PM [facility] Albumin 3.8 3.2 - 5.0 g/dL LAB CHEMISTRY METHOD 01/22/2025 2:39 PM [facility] Total Bilirubin 0.5 0.0 - 1.4 mg/dL LAB CHEMISTRY METHOD 01/22/2025 2:39 PM [facility] Bilirubin, Direct 0.1 0.0 - 0.3 mg/dL LAB CHEMISTRY METHOD 01/22/2025 2:39 PM [facility] Bilirubin, Indirect 0.4 0.0 - 1.1 mg/dL LAB CHEMISTRY METHOD 01/22/2025 2:39 PM [facility] ALT (SGPT) 28 10 - 60 unit/L LAB CHEMISTRY METHOD 01/22/2025 2:39 PM EDT [facility] AST (SGOT) 20 10 - 42 unit/L LAB CHEMISTRY METHOD 01/22/2025 2:39 PM EDT [facility] Alkaline Phosphatase 90 42 - 121 unit/L LAB CHEMISTRY METHOD 01/22/2025 2:39 PM EDT [facility] Blood Venous blood specimen / Unknown Venipuncture / Unknown 01/22/2025 10:54 AM EDT 01/22/2025 10:54 AM EDT Flip CHIRINOS LAB BLOOD ORDERABLES Fi nal Result [facility] [address] [place] [address], [place] [phone] * (ABNORMAL) CBC auto differential (01/06/2025 9:54 AM EDT) WBC 5.4 4.8 - 10.8 K/mcL LAB HEMETOLOGY METHOD 01/06/2025 1:13 PM EDT [facility] RBC 3.70(L) 3.80 - 4.80 M/mcL LAB HEMETOLOGY METHOD 01/06/2025 1:13 PM [facility] Hemoglobin 11.7 11.5 - 16.0 g/dL LAB HEMETOLOGY METHOD 01/06/2025 1:13 PM EDT [facility] Hematocrit 34.8(L) 35.0 - 47.0 % LAB HEMETOLOGY METHOD 01/06/2025 1:13 PM EDT [facility] MCV 93.8 79.0 - 98.0 FL LAB HEMETOLOGY METHOD 01/06/2025 1:13 PM T [facility] MCH 31.5 27.0 - 32.0 pcg LAB HEMETOLOGY METHOD 01/06/2025 1:13 PM EDT [facility] MCHC 33.6 32.0 - 37.0 g/dL LAB HEMETOLOGY [facility]/06[facility]2025 [facility] RDW 12.2 11.0 - 15.0 % LAB HEMETOLOGY METHOD 01/06/2025 1:13 PM [facility] Platelets 265 130 - 400 K/mcL LAB HEMETOLOGY METHOD 01/06/2025 1:13 PM [facility] MPV 9.7 7.0 - 11.0 FL LAB HEMETOLOGY METHOD 01/06/2025 1:13 PM [facility] NRBC 0.0 <1.0 % LAB HEMETOLOGY METHOD 01/06/2025 1:13 PM [facility] NRBC Absolute 0.00 <0.10 K/mcL LAB HEMETOLOGY METHOD 01/06/2025 1:13 PM [facility] Neutrophils Relative 35.8 % LAB HEMETOLOGY METHOD 01/06/2025 1:13 PM [facility] Lymphocytes Relative 50.2 % LAB HEMETOLOGY METHOD 01/06/2025 1:13 PM [facility] Monocytes Relative 11.2 % LAB HEMETOLOGY METHOD 01/06/2025 1:13 PM [facility] Eosinophils Relative 2.2 % LAB HEMETOLOGY METHOD 01/06/2025 1:13 PM [facility] Basophils Relative 0.4 % LAB HEMETOLOGY METHOD 01/06/2025 1:13 PM [facility] Immature Granulocytes Relative 0.2 % LAB HEMETOLOGY METHOD 01/06/2025 1:13 PM [facility] Neutrophils Absolute 1.93 1.50 - 7.00 K/mcL LAB HEMETOLOGY METHOD 01/06/2025 1:13 PM EDT [facility] Lymphocytes Absolute 2.70 1.00 - 5.00 K/mcL LAB HEMETOLOGY METHOD 01/06/2025 1:13 PM EDT [facility] Monocytes Absolute 0.60 0.20 - 1.00 K/mcL LAB HEMETOLOGY METHOD 01/06/2025 1:13 PM EDT [facility] Eosinophils Absolute 0.12 0.00 - 0.50 [facility] LAB HEMETOLOGY METHOD 01/06/2025 1:13 PM EDT [facility] Basophils Absolute 0.02 0.00 - 0.20 [facility] LAB HEMETOLOGY METHOD 01/06/2025 1:13 PM EDT [facility] Immature Granulocytes Absolute 0.01 0.00 - 0.03 [facility] LAB HEMETOLOGY METHOD 01/06/2025 1:13 PM EDT [facility] Blood Venous blood specimen / Unknown Venipuncture / Unknown 01/06/2025 9:54 AM EDT 01/06/2025 9:54 AM EDT us Nael Saravia MD LAB BLOOD ORDERABLES Final Resu lt [facility] [address] [place] [address], * Microalbumin creatinine urine ratio (01/06/2025 9:54 AM EDT) Creatinine, Urine 188.0 mg/dL LAB CHEMISTRY METHOD 01/06/2025 1:55 PM EDT [facility] Microalb, Ur 9.0 0.0 - 29.0 mg/L LAB CHEMISTRY METHOD 01/06/2025 1:55 PM EDT [facility] Microalb/Creat Ratio 5 <30 mg/g creat LAB CHEMISTRY METHOD 01/06/2025 1:55 PM EDT [facility] Urine Urine specimen obtained by clean catch procedure / Unknown Non-blood Collection / Unknown 01/06/2025 9:54 AM EDT 01/06/2025 9:54 AM EDT us Nael Saravia MD LAB URINE ORDERABLES Final Resu lt [facility] [address] [place] [address], [place] [phone] * (ABNORMAL) Renal function panel (01/06/2025 9:54 AM EDT) Sodium 139 133 - 145 mmol/L LAB CHEMISTRY METHOD 01/06/2025 3:56 PM [facility] Potassium 4.0 3.5 - 5.5 mmol/L LAB CHEMISTRY METHOD 01/06/2025 3:56 PM [facility] Chloride 111(H) 96 - 110 mmol/L LAB CHEMISTRY METHOD 01/06/2025 3:56 PM [facility] CO2 22 21 - 32 mmol/L LAB CHEMISTRY METHOD 01/06/2025 3:56 PM [facility] Anion Gap 6 3 - 11 LAB CHEMISTRY METHOD 01/06/2025 3:56 PM [facility] Glucose 90 70 - 100 mg/dL LAB CHEMISTRY METHOD 01/06/2025 3:56 PM [facility] BUN 14 5 - 25 mg/dL LAB CHEMISTRY METHOD 01/06/2025 3:56 PM [facility] Creatinine 0.66 0.50 - 1.10 mg/dL LAB CHEMISTRY METHOD 01/06/2025 3:56 PM [facility] eGFR 108 >=60 mL/min/1. 73m2 LAB CHEMISTRY METHOD 01/06/2025 3:56 PM [facility] Comment:Calculation based on the Chronic Kidney Disease Epidemiology Collaboration (CKD-EPI) equation refit without adjustment for race. BUN/Creatinine Ratio 21.2 LAB CHEMISTRY METHOD 01/06/2025 3:56 PM EDT [facility] Albumin 3.4 3.2 - 5.0 g/dL LAB CHEMISTRY METHOD 01/06/2025 3:56 PM EDT [facility] Calcium 8.7 8.5 - 10.5 mg/dL LAB CHEMISTRY METHOD 01/06/2025 3:56 PM EDT [facility] Phosphorus 3.6 2.5 - 4.5 mg/dL LAB CHEMISTRY METHOD 01/06/2025 3:56 PM EDT [facility] Blood Venous blood specimen / Unknown Venipuncture / Unknown 01/06/2025 9:54 AM EDT 01/06/2025 9:54 AM EDT Nael Saravia MD LAB BLOOD ORDERABLES Final Resu lt [facility] [address] [place] [address], [place] [phone] * Diabetes Eye Exam (01/01/2025) Provider [facility] MAINTENANCE Final Result * (ABNORMAL) Lipid panel with reflex to direct LDL (11/27/2024 10:19 AM EDT) Cholesterol 212(H) 0 - 200 mg/dL LAB CHEMISTRY METHOD 11/27/2024 2:39 PM EDT [facility] Triglycerides 65 0 - 150 mg/dL LAB CHEMISTRY METHOD 11/27/2024 2:39 PM EDT [facility] HDL 64 >=40 mg/dL LAB CHEMISTRY METHOD 11/27/2024 2:39 PM EDT [facility] [facility] LDL Calculated 135(H) 0 - 100 mg/dL LAB CHEMISTRY METHOD 11/27/2024 2:39 PM EDT [facility] VLDL Cholesterol Roque 13 mg/dL LAB CHEMISTRY METHOD 11/27/2024 2:39 PM EDT [facility] Non HDL Chol. (LDL+VLDL) 148(H) <145 mg/dL LAB CHEMISTRY METHOD 11/27/2024 2:39 PM EDT [facility] Chol/HDL Ratio 3.3 0.0 - 4.4 LAB CHEMISTRY METHOD 11/27/2024 2:39 PM EDT [facility] Blood Venous blood specimen / Unknown Venipuncture / Unknown 11/27/2024 10:19 AM EDT 11/27/2024 10:19 AM EDT Flip CHIRINOS LAB BLOOD ORDERABLES Fi nal Result Performing Organization Address [facility]/ZIP Co de Phone Number [facility] [address] [place] [address], * Hepatitis C antibody (10/06/2024 10:29 AM EST) Hepatitis C Antibody Negative Negative LAB CHEMISTRY METHOD 10/06/2024 3:31 PM EST [facility] Blood Venous blood specimen / Unknown Venipuncture / Unknown 10/06/2024 10:29 AM EST 10/06/2024 10:29 AM EST Heladio Valdes CNM LAB BLOOD ORDERABLES Final Re sult Performing Organization Address City/[facility]/ZIP Co de Phone Number [facility] [address] [place] [address], [place] [phone] * HIV 1,2 antibody, p24 antigen with reflex to differentiation (10/06/2024 10:29 AM EST) HIV Combo AB/AG Negative Negative LAB CHEMISTRY METHOD 10/06/2024 3:03 PM EST [facility] Blood Venous blood specimen / Unknown Venipuncture / Unknown 10/06/2024 10:29 AM EST 10/06/2024 10:29 AM EST Narrative [facility] - 10/06/2024 3:03 PM EST This assay is a 4th generation assay allowing for earlier detection of HIV infection by detecting the presence of the HIV-1 p24 antigen as well as the traditional antibodies to HIV type 1 (including group O) and type 2. Use of a 4th generation assay is the current CDC recommendation for HIV screening. Heladio Valdes [facility] BLOOD ORDERABLES Final Re sult Performing Organization Address City/[facility]/ZIP Co de Phone Number [facility] [address] [place] [address], [place] [phone] * HPV with reflex genotype (10/06/2024 9:41 AM EST) HPV Negative Negative LAB MICROBIOLOGY METHOD 10/07/2024 1:11 PM EST [facility] Brushing Cervix uteri structure / Unknown 10/06/2024 9:41 AM EST 10/07/2024 5:51 AM EST [facility] LAB MOLECULAR DIAGNOSTICS ORD ERABLES Final Result Performing Organization Address [facility] Co de Phone Number [facility] [address] [place] [address], [place] [phone] * DIAGNOSTIC MAMMOGRAPHY INCLUDING CAD BILATERAL (12/03/2023 10:28 AM EDT) Anatomical Region Laterality Modality Mammography 11/06/2023 2:15 PM EDT Narrative 12/03/2023 10:31 AM EDT This is a summary report. The complete report is available in the patient's medical record. If you cannot access the medical record, please contact the sending organization for a detailed fax or copy. BILATERAL 3D DIGITAL DIAGNOSTIC MAMMOGRAM History: Evaluate for right axillary adenopathy. Family history of breast cancer in aunt, patient has history of lymph node sampling which was negative. Comparison: Multiple priors dating back to 11/23/2016 Technique: Bilateral full-field digital 3D mammography was performed using standard CC and MLO projections, bilateral exaggerated CC CAD was used to evaluate this mammogram. Findings: Density: The breasts are heterogeneously dense which may obscure small masses-C RIGHT: No suspicious masses, groups of microcalcification or areas of architectural distortion identified. Stable typically benign parenchymal asymmetries LEFT: No suspicious masses, groups of microcalcifications or areas of architectural distortion identified. Stable typically benign parenchymal asymmetries RIGHT BREAST TARGETED ULTRASOUND EVALUATION HISTORY: Evaluate for right axillary adenopathy TECHNIQUE: Ultrasonographic examination is performed using a linear array transducer. Targeted right breast ultrasound was performed in the axillary tail/axilla to evaluate area of clinical concern. Real-time sonographic scanning was also performed by the radiologist FINDINGS: At the axillary tail, there is a 1.0 x 0.5 x 1.4 cm morphologically normal lymph node. Impression: No lymphadenopathy. No mammographic evidence of malignancy. BI-RADS Category 2 benign findings Recommendation: Routine annual screening mammography is recommended Procedure Note Rose Marie Christianson MD - 03/31/2024 This is a summary report. The complete report is available in thepatient's medical record. If you cannot access the medical record, pleasecontact the sending organization for a detailed fax or copy. BILATERAL 3D DIGITAL DIAGNOSTIC MAMMOGRAM History: Evaluate for right axillary adenopathy. Family history of breastcancer in aunt, patient has history of lymph node sampling which wasnegative. Comparison: Multiple priors dating back to 11/23/2016 Technique: Bilateral full-field digital 3D mammography was performed usingstandard CC and MLO projections, bilateral exaggerated CC CAD was used to evaluate this mammogram. Findings: Density: The breasts are heterogeneously dense which may obscure smallmasses-C RIGHT: No suspicious masses, groups of microcalcification or areas ofarchitectural distortion identified. Stable typically benign parenchymalasymmetries LEFT: No suspicious masses, groups of microcalcifications or areas ofarchitectural distortion identified. Stable typically benign parenchymalasymmetries RIGHT BREAST TARGETED ULTRASOUND EVALUATION HISTORY: Evaluate for right axillary adenopathy TECHNIQUE: Ultrasonographic examination is performed using a linear arraytransducer. Targeted right breast ultrasound was performed in theaxillary tail/axilla to evaluate area of clinical concern. Real-timesonographic scanning was also performed by the radiologist FINDINGS: At the axillary tail, there is a 1.0 x 0.5 x 1.4 cm morphologically normallymph node. Impression: No lymphadenopathy. No mammographic evidence of malignancy. BI-RADS Category 2 benign findings Recommendation: Routine annual screening mammography is recommended us Flip CHIRINOS IMG BI PROCEDURES Final Result from Last 3 Months or Most Recently Relevant to Health Maintenance Insurance [facility] MEDICAID Care Teams Supervisor Dumping Relationship Specialty Start Date End Date Kelvin Blake MD [address] [place], [place] [address] [address] PCP - General Internal Medicine 12/14/21
== END 2025-01-28 10:46 | disposition home or self-care (01) ==
LOC: HO.RHE 10:18
PROVIDERS: PCP Internal Medicine; Visit Provider Student in an Organized Health Care Education/Training Program
DX: M32.19 Other organ or system involvement in systemic lupus erythematosus (principal); Z79.899 Other long term (current) drug therapy
CPT/HCPCS: 99214

== ENCOUNTER → 2025-01-28 10:18 | Outpatient (BNVA) | payer OTHER, SELFPAY | PROVIDERS: PCP Internal Medicine; Visit Provider Student in an Organized Health Care Education/Training Program ==

== ENCOUNTER 2025-05-29 13:11 | Outpatient (REF) | payer OTHER, SELFPAY ==
--- NOTE | ~2025-05-29 | XR_ITS ---
EXAMINATION: XR SHOULDER, ROGELIO 3V CLINICAL INFORMATION: M32.19 - Other organ or system involvement in systemic lupus erythematosus ; bilateral shoulder pain. COMPARISON: None available. TECHNIQUE: AP external rotation, Grashey, scapular Y, and axillary views of the each shoulder. FINDINGS: RIGHT SHOULDER: Normal bone mineralization. No fracture, dislocation, or suspicious bone lesion. Normal alignment. The glenohumeral joint is normal. The AC joint is normal. There is a type II acromion. No undersurface spurring. The subacromial space is preserved. Remainder of the soft tissue and bony structures appear normal. LEFT SHOULDER: Normal bone mineralization. No fracture, dislocation, or suspicious bone lesion. Normal alignment. The glenohumeral joint is normal. The AC joint is normal. There is a type II acromion. No undersurface spurring. The subacromial space is preserved. There is mild calcification of the supraspinatus tendon abutting the footplate insertion. Remainder of the soft tissue and bony structures appear normal. XR/XR Shoulder Rogelio min 2V IMPRESSION: 1. Normal right shoulder. 2. Mild calcific tendinopathy of the supraspinatus tendon, left shoulder. Electronically signed by: Mariusz Cao MD 05/29/2025 02:00 PM EDT
--- NOTE | ~2025-05-29 | XR_ITS ---
EXAMINATION: XR HAND, LEFT CLINICAL INFORMATION: M32.19 - Other organ or system involvement in systemic lupus erythematosus COMPARISON: None available. TECHNIQUE: PA, lateral, and oblique views of the left hand. FINDINGS: Periarticular osteopenia. Bone alignment is normal. Joint spaces are normal. No erosions or soft tissue calcifications. XR/XR Hand Bilat min 3v IMPRESSION: Periarticular osteopenia otherwise normal left hand. EXAMINATION: XR HAND, RIGHT CLINICAL INFORMATION: M32.19 - Other organ or system involvement in systemic lupus erythematosus COMPARISON: None available. TECHNIQUE: PA, lateral, and oblique views of the right hand. FINDINGS: Periarticular osteopenia. Bone alignment is normal. Joint spaces are normal. No erosions or soft tissue calcifications. IMPRESSION: Periarticular osteopenia otherwise normal right hand. Electronically signed by: Le Lewis MD 05/29/2025 02:00 PM EDT
[2025-05-29 13:27] LABS: MANUAL DIFF FLAG NO
[2025-05-29 14:05] LABS: Hematocrit 39.5 % (37.0-47.0); Hemoglobin 13.4 g/dl (12.0-16.0); Imm Gran Abs Auto 0.01 X10*3/uL (0.00-0.03); Imm Gran Pct Auto 0.2 % (0.0-0.4); Lymphocytes Absolute Auto 2.4 X10*3/uL (1.2-4.9); Mean Corpuscular HGB Conc 33.9 g/dl (31.0-35.0); Mean Corpuscular Hemoglobin 30.6 pg (27.0-33.0); Mean Corpuscular Volume 90.2 fL (80.0-98.0); NRBC Abs Auto 0.000 X10*3/uL (0.0-0.012); NRBC Pct Auto 0.0 /100WBC (0.0-0.2); Platelet Count 308 X10*3/uL (160-400); Red Blood Count 4.38 X10*6/uL (4.20-5.50); White Blood Count 6.2 X10*3/uL (4.8-10.8)
[2025-05-29 14:39] LABS: Appearance Urine Clear; Glucose Urine UA Negative (Negative); PH 5.5 (5.0-9.0); Specific Gravity - Urine <= 1.005 (1.005-1.025)
[2025-05-29 15:18] LABS: Total Protein Urine Random < 7 mg/dL (<12)
--- OUTSIDE RECORDS SUMMARY | 2025-05-29 15:52 | XMS_ITS | Clinical Summary ---
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 Active estradioL (ESTRACE) 0.01 % (0.1 mg/gram) vaginal cream Apply pv twice wkly 42.5 g 3 10/06/2024 Active atorvastatin (LIPITOR) 20 mg tablet TAKE 1 TABLET BY MOUTH EVERYDAY AT BEDTIME 90 tablet 1 11/24/2024 Active losartan (COZAAR) 100 mg tablet Take 0.5 tablets (50 mg total) by mouth 2 (two) times a day. 90 each 1 01/22/2025 07/21/20 25 Active metoprolol tartrate (LOPRESSOR) 25 mg tablet Take 0.5 tablets (12.5 mg total) by mouth 1 (one) time each day. 45 each 1 01/22/2025 07/21/20 25 Active predniSONE (DELTASONE) 5 mg tablet Take 1 tablet (5 mg total) by mouth if needed. 01/28/2025 Active hydroxychloroqu ine (PLAQUENIL) 200 mg tablet Take 1 tablet (200 mg total) by mouth 1 (one) time each day. 04/25/2025 Active ciclopirox (LOPROX) 0.77 % cream Apply thin layer to affected area BID for 2 weeks then stop. 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 Systemic lupus erythematosus ([facility] V24, [facility]/ [facility] V28) 07/21/2005 Overview (06/09/2024): Onset 2001 [...] Encounters Date Type Department Care Team Description 05/06/2025 4:00 PM EDT [facility] [address] [place] [address] Shiela Lisa NP Acute pain of right knee (Primary Dx) 05/06/2025 Telephone Internal Medicine - [facility] [address] [place] [address] Kelvin Blake MD 04/20/2025 3:37 PM EDT - 04/20/2025 11:59 PM EDT Hospital Encounter Radiology Department - [address] [phone] Abnormal mammogram Discharge Disposition: Home or Self Care 04/20/2025 3:26 PM EDT - 04/20/2025 11:59 PM EDT Hospital Encounter Radiology Department - [address] [phone] Abnormal mammogram Discharge Disposition: Home or Self Care 03/30/2025 1:41 PM EDT - 03/30/2025 11:59 PM EDT Hospital Encounter Radiology Department - [address] [phone] Encounter for screening mammogram for malignant neoplasm of breast Discharge Disposition: Home or Self Care from Last 3 Months Immunizations Immunization Administration Dates Next Due Hepatitis B (Gknxjqt-I-Fpqpb , Recombivax HB-Adult) 19yo and older 09/15/2015,04/15/2015,03/15/2015 Influenza Quadravalent, MDCK , 0.5ml, with preservative (Flucelvax) 6mo and older 07/24/2017 Influenza trivalent, 0.5mL, preservative free (Fluarix; FluLaval; Fluzone) ages 6mo and older (Afluria) 3 years and older 07/12/2015,07/30/2014,05/21/2013,2011,04/19/2011,05/30/2010,05/14/2009,1 08/29/2007,05/15/2007,06/22/2006, 005 PPD Test 08/22/2005,03/17/2001,03/15/2001 Pfizer SARS-CoV-2 COVID-19, mRNA, LNP-S, preservative free 01/10/2021,12/20/2020 Tdap Tetanus diptheria acell ular pertussis (Boostrix; Adacel) 7yo and older 03/10/2015 Varicella live (Varivax) 12m o and older 03/15/2015,06/28/2005 Surgical History Surgery Date Site/Laterality Comments SECTION PROCEDURE: SECTION BREAST LUMPECTOMY PROCEDURE:BREAST LUMPECTOMY;COMMENT:benign lump SECTION PROCEDURE: UT DELIVERY ONLY; COMMENT: x3 BREAST BIOPSY 01/2020 Right PROCEDURE: UT BIOPSY BREAST OPEN INCISIONAL; COMMENT: LYMPH NODE-FNA SECTION 02/2010 PROCEDURE: HISTORICAL DELIVERY; COMMENT: 32 weeks, severe preeclampsia, lupus flare OTHER SURGICAL HISTORY PROCEDURE: UT LIG/TRNSXJ FLP TUBE ABDL/VAG APPR UNI/BI FOOT SURGERY 2017 Left PROCEDURE: HISTORICAL FOOT SURGERY; COMMENT: bunionvianneyertoe surgery UPPER GASTROINTESTINAL ENDOSCOPY 09/10/2020 PROCEDURE: UT UPPER GI ENDOSCOPY PERFORMED; COMMENT: Visually normal, duodenal biopsies obtained to evaluate chronic diarrhea: Biopsies normal. COLONOSCOPY 09/10/2020 PROCEDURE: HISTORICAL COLONOSCOPY; COMMENT: Visually normal, biopsies obtained from ascending colon and descending colon: Biopsies normal. BREAST BIOPSY 2004 Right PROCEDURE: BX BREAST; PERC NEEDLE CORE W/IMAG GUID; COMMENT: negative BREAST SURGERY 2004 Right PROCEDURE: UT UNLISTED PROCEDURE BREAST; COMMENT: RT Medical History Medical History Date Comments Lupus DX:Lupus Hypertension DX:Hypertension Thrombocytopenia, unspecifie d ([facility] V24) 08/22/2005 DX:Thrombocytopenia, unspeci fied ([facility]) Anemia, unspecified 08/22/2005 DX:Anemia, u nspecified Systemic lupus erythematosus ([facility] V24, [facility] V28) 07/21/2005 DX:Systemic lupus erythemato damián ([facility]); COMMENT: Onset 2001 with fever, arthritis, skin [...] Sexual Orientation Not on file Obstetrics History Para Term AB IAB SAB Ectopic Multiple Livin g Live Births 3 3 3 3 Date Outcome GA Total Labor Labor/2nd/3rd Weight Sex Type Anes PTL Rosalba A1 A5 Name Clin Term Term Term Last Filed Vital Signs Vital Sign Reading Time Taken Comments Blood Pressure 110/67 05/06/2025 4:10 PM EDT A Pulse 63 05/06/2025 4:10 PM EDT Temperature 35.8 C (96.4 F) 08/12/2024 5:56 PM EST Respiratory Rate 16 01/22/2025 10:22 AM EDT Oxygen Saturation 99% 08/12/2024 5:56 PM EST Inhaled Oxygen Concentration - - Weight 66.7 kg (147 lb) 05/06/2025 4:10 PM EDT Height 160 cm (5' 3 ) 05/06/2025 4:10 PM EDT Body Mass Index 26.04 05/06/2025 4:10 PM EDT Plan of Treatment Upcoming Encounters Date Type Department Care Team (Late st Contact Info) Description 07/24/2025 10:00 AM EST [facility] [address] [place] [address] Flip Joy PA [address] [facility] [address] 09/01/2025 4:15 PM EST Office Visit Nephrology - [facility] [address] [place] [address] Nael Saravia MD [address] [place] [address] 03/31/2026 10:00 AM EDT Appointment Radiology Department - [address] [phone] Health Maintenance Due Date Last Done Comments Colorectal Cancer Screening: Colonoscopy 1975 Social Influencers of Health Screening 07/22/2022 Depression Screening 08/13/2024 Pneumococcal Vaccine: 50+ Years (2 of 2 - PCV) 2025 2017 Zoster Vaccines (1 of 2) 2025 03/15/2015, 06/13 DTaP,Tdap,and Td Vaccines (2 - Td or Tdap) 03/10/2025 03/10/2015 COVID-19 Vaccine (3 - season) 2025 01/10/2021, 12/20/2020 Influenza Vaccine (#1) 2025 7, 07/12/2015, 07/30/2014, Additional history exists Hypertension/CHF/CAD Annual BMP Blood Test 05/15/2026 05/15/2025, 01/06/2025, 09/12/2024, Additional history exists Breast Cancer Screening 04/20/2027 04/20/20, 03/30/2025, 12/03/2023, Additional history exists Cervical Cancer Screening: HPV 10/06/2029 10/06/2024, 04/20/2020 Cholesterol Screening (Lipid Panel) 11/27/2029 11/27/2024, 05/19/2024, 05/19/2024 RSV Immunization Adult Patients (1 - 1-dose 75+ series) 2050 Varicella Vaccines Aged Out 03/15/2015, 06/28/2005 No longer eligible based on patient's age to complete this topic Hepatitis B Vaccines Completed 09/15/2015, 04/15/2015, 03/15/2015 HIV Screening Completed 10/06/2024, 03/12/2023 Hepatitis C [...] Procedure Name Priority Date/Time Associated Diagnosis Comments HEPATIC FUNCTION PANEL Routine 9:46 AM EDT Nonspecific abnormal results of liver function study BASIC METABOLIC PANEL Routine 05/15/2025 9:46 AM EDT Nonspecific abnormal results of liver function study US BREAST LIMITED RIGHT Routine 04/20/2025 3:46 PM EDT Abnormal mammogram MG MAMMO DIGITAL DIAGNOSTIC W MEIR RIGHT Routine 04/20/2025 3:34 PM EDT Abnormal mammogram MG MAMMO DIGITAL SCREENING W MEIR BILAT Routine 03/30/2025 2:03 PM EDT Encounter for screening mammogram for malignant neoplasm of breast LIPID PANEL WITH REFLEX TO DIRECT LDL [...] in a patient older than 17 years from Last 3 Months or Most Recently Relevant to Health Maintenance Results * (ABNORMAL) Hepatic function panel (05/15/2025 9:46 AM EDT) Pathologist [facility] Total Protein 7.4 6.0 - 8.0 g/dL LAB CHEMISTRY METHOD 05/15/2025 4:15 PM [facility] Albumin 4.2 3.2 - 5.0 g/dL LAB CHEMISTRY METHOD 05/15/2025 4:15 PM [facility] Total Bilirubin 0.8 0.0 - 1.4 mg/dL LAB CHEMISTRY METHOD 05/15/2025 4:15 PM [facility] Bilirubin, Direct 0.1 0.0 - 0.3 mg/dL LAB CHEMISTRY METHOD 05/15/2025 4:15 PM [facility] Bilirubin, Indirect 0.7 0.0 - 1.1 mg/dL LAB CHEMISTRY METHOD 05/15/2025 4:15 PM [facility] ALT (SGPT) 39 10 - 60 unit/L LAB CHEMISTRY METHOD 05/15/2025 4:15 PM [facility] AST (SGOT) 61(H) 10 - 42 unit/L LAB CHEMISTRY METHOD 05/15/2025 4:15 PM [facility] Alkaline Phosphatase 91 42 - 121 unit/L LAB CHEMISTRY METHOD 05/15/2025 4:15 PM [facility] Blood Venous blood specimen / Unknown Venipuncture / Unknown 05/15/2025 9:46 AM EDT 05/15/2025 9:46 AM EDT us Jay Loza DPM LAB BLOOD ORDERABLES Final Re sult [facility] [address] [place] [address], * Basic metabolic panel (05/15/2025 9:46 AM EDT) Sodium 141 133 - 145 mmol/L LAB CHEMISTRY METHOD 05/15/2025 4:12 PM [facility] Potassium 4.2 3.5 - 5.5 mmol/L LAB CHEMISTRY METHOD 05/15/2025 4:12 PM [facility] Chloride 109 96 - 110 mmol/L LAB CHEMISTRY METHOD 05/15/2025 4:12 PM [facility] CO2 28 21 - 32 mmol/L LAB CHEMISTRY METHOD 05/15/2025 4:12 PM [facility] Anion Gap 4 3 - 11 LAB CHEMISTRY METHOD 05/15/2025 4:12 PM [facility] Glucose 87 70 - 100 mg/dL LAB CHEMISTRY METHOD 05/15/2025 4:12 PM [facility] BUN 11 5 - 25 mg/dL LAB CHEMISTRY METHOD 05/15/2025 4:12 PM [facility] Creatinine 0.70 0.50 - 1.10 mg/dL LAB CHEMISTRY METHOD 05/15/2025 4:12 PM [facility] eGFR 106 >=60 mL/min/1. 73m2 LAB CHEMISTRY METHOD 05/15/2025 4:12 PM [facility] Comment:Calculation based on the Chronic Kidney Disease Epidemiology Collaboration (CKD-EPI) equation refit without adjustment for race. BUN/Creatinine Ratio 15.7 LAB CHEMISTRY METHOD 05/15/2025 4:12 PM [facility] Calcium 9.5 8.5 - 10.5 mg/dL LAB CHEMISTRY METHOD 05/15/2025 4:12 PM EDT [facility] Blood Venous blood specimen / Unknown Venipuncture / Unknown 05/15/2025 9:46 AM EDT 05/15/2025 9:46 AM EDT Jay Loza DP LAB BLOOD ORDERABLES Final Re sult [facility] [address] [place] [address], [place] [phone] * US Breast Limited Right (04/20/2025 3:46 PM EDT) Anatomical Region Laterality Modality Breast Right Ultrasound 04/23/2025 7:48 AM EDT Impressions 04/23/2025 7:50 AM EDT Benign. Findings and recommendations were conveyed to the patient. BI-RADS CATEGORY: 1 - NEGATIVE RECOMMENDATION: Return to annual mammography. Return to annual mammography. Return to annual mammography. Return to annual mammography. Mammo Location: [facility], [address] [place] [address], [phone], . -------- FINAL REPORT -------- Dictated By: Slime Henning Dictated Date: 04/23/2025 07:48 ET Assigned Physician: Slime Henning Reviewed and Electronically Signed By: Slime Henning Signed Date: 04/23/2025 07:50 ET Workstation ID: [id number] Transcribed By: Self Edit Transcribed Date: 04/23/2025 07:48 ET Narrative 04/23/2025 7:50 AM EDT CLINICAL: 50 years old, Female, indeterminate upper outer middle/posterior depth focal asymmetry right breast on screening mammogram of 03/30/2025. COMPARISON: Mammograms dating back to 11/29/2017. FINDINGS: MAMMOGRAPHY TECHNIQUE: ML, spot compression MLO and spot compression CC views of the right breast were obtained digitally with 3-D mammogram (digital breast tomosynthesis). Computer-aided detection was utilized in evaluation of this exam (CAD). Focal asymmetry suggested in the upper outer right breast effaces on the spot compression views and is not visible on the mediolateral view. BREAST DENSITY: C - The breasts are heterogeneously dense which may obscure small masses. ULTRASOUND TECHNIQUE: Ultrasound evaluation of the upper outer left breast was performed. There is no evidence of morphologically suspicious mass. Procedure Note Slime Henning MD - 04/23/2025 CLINICAL: 50 years old, Female, indeterminate upper outer middle/posteriordepth focal asymmetry right breast on screening mammogram of 03/30/2025. COMPARISON: Mammograms dating back to 11/29/2017. FINDINGS: MAMMOGRAPHY TECHNIQUE: ML, spot compression MLO and spot compression CC views of theright breast were obtained digitally with 3-D mammogram (digital breasttomosynthesis). Computer-aided detection was utilized in evaluation ofthis exam (CAD). Focal asymmetry suggested in the upper outer right breast effaces on thespot compression views and is not visible on the mediolateral view. BREAST DENSITY: C - The breasts are heterogeneously dense which mayobscure small masses. ULTRASOUND TECHNIQUE: Ultrasound evaluation of the upper outer left breast wasperformed. There is no evidence of morphologically suspicious mass. IMPRESSION: Benign. Findings and recommendations were conveyed to the patient. BI-RADS CATEGORY: 1 - NEGATIVE RECOMMENDATION: Return to annual mammography. Return to annual mammography. Return toannual mammography. Return to annual mammography. Mammo Location: [facility], [address] [place] [address], [phone], . -------- FINAL REPORT -------- Dictated By: Slime Henning Dictated Date: 04/23/2025 07:48 ET Assigned Physician: Slime Henning Reviewed and Electronically Signed By: Slime Henning Signed Date: 04/23/2025 07:50 ET Workstation ID: [id number] Transcribed By: Self Edit Transcribed Date: 04/23/2025 07:48 ET us Heladio Valdes CNM IMG US PROCEDURES Final Resul t * MG Mammo Digital Diagnostic w Meir Right (04/20/2025 3:34 PM EDT) Anatomical Region Laterality Modality Breast Right Mammography 04/20/2025 3:35 PM EDT Impressions 04/20/2025 3:54 PM EDT Benign. Findings and recommendations were conveyed to the patient. BI-RADS CATEGORY: 1 - NEGATIVE RECOMMENDATION: Return to annual mammography. Return to annual mammography. Return to annual mammography. Return to annual mammography. Mammo Location: [facility], [address] [place] [address], [phone], . -------- FINAL REPORT -------- Dictated By: Slime Henning Dictated Date: 04/20/2025 15:35 ET Assigned Physician: Slime Henning Reviewed and Electronically Signed By: Slime Henning Signed Date: 04/20/2025 15:54 ET Workstation ID: [id number] Transcribed By: Self Edit Transcribed Date: 04/20/2025 15:43 ET Narrative 04/20/2025 3:54 PM EDT CLINICAL: 50 years old, Female, indeterminate upper outer middle/posterior depth focal asymmetry right breast on screening mammogram of 03/30/2025. COMPARISON: Mammograms dating back to 11/29/2017. FINDINGS: MAMMOGRAPHY TECHNIQUE: ML, spot compression MLO and spot compression CC views of the right breast were obtained digitally with 3-D mammogram (digital breast tomosynthesis). Computer-aided detection was utilized in evaluation of this exam (CAD). Focal asymmetry suggested in the upper outer right breast effaces on the spot compression views and is not visible on the mediolateral view. BREAST DENSITY: C - The breasts are heterogeneously dense which may obscure small masses. ULTRASOUND TECHNIQUE: Ultrasound evaluation of the upper outer left breast was performed. There is no evidence of morphologically suspicious mass. Procedure Note Slime Henning MD - 04/20/2025 CLINICAL: 50 years old, Female, indeterminate upper outer middle/posteriordepth focal asymmetry right breast on screening mammogram of 03/30/2025. COMPARISON: Mammograms dating back to 11/29/2017. FINDINGS: MAMMOGRAPHY TECHNIQUE: ML, spot compression MLO and spot compression CC views of theright breast were obtained digitally with 3-D mammogram (digital breasttomosynthesis). Computer-aided detection was utilized in evaluation ofthis exam (CAD). Focal asymmetry suggested in the upper outer right breast effaces on thespot compression views and is not visible on the mediolateral view. BREAST DENSITY: C - The breasts are heterogeneously dense which mayobscure small masses. ULTRASOUND TECHNIQUE: Ultrasound evaluation of the upper outer left breast wasperformed. There is no evidence of morphologically suspicious mass. IMPRESSION: Benign. Findings and recommendations were conveyed to the patient. BI-RADS CATEGORY: 1 - NEGATIVE RECOMMENDATION: Return to annual mammography. Return to annual mammography. Return toannual mammography. Return to annual mammography. Mammo Location: [facility], [address] [place] [address], [phone], . -------- FINAL REPORT -------- Dictated By: Slime Henning Dictated Date: 04/20/2025 15:35 ET Assigned Physician: Slime Henning Reviewed and Electronically Signed By: Slime Henning Signed Date: 04/20/2025 15:54 ET Workstation ID: [id number] Transcribed By: Self Edit Transcribed Date: 04/20/2025 15:43 ET Heladio Valdes CNM IMG BI PROCEDURES Final Resul t * (ABNORMAL) MG Mammo Digital Screening w Meir bilat (03/30/2025 2:03 PM EDT) Anatomical Region Laterality Modality Breast Bilateral Mammography 04/01/2025 10:5 1 AM EDT Impressions 04/01/2025 12:27 PM EDT 1. Left: No mammographic evidence of malignancy 2. Right: Indeterminate upper outer middle/posterior depth focal asymmetry 3. Heterogeneous breast parenchyma BI-RADS CATEGORY: 0 - INCOMPLETE - NEED ADDITIONAL IMAGING EVALUATION RECOMMENDATION: Additional right breast imaging recommended. Right breast CC and MLO spot compression, full-field ML, targeted ultrasound Mammo Location: [facility], [address] [place] [address], [phone], . -------- FINAL REPORT -------- Dictated By: Rose Marie Christianson Dictated Date: 04/01/2025 10:51 ET Assigned Physician: Rose Marie Christianson Reviewed and Electronically Signed By: Rose Marie Christianson Signed Date: 04/01/2025 12:27 ET Workstation ID: [id number] Transcribed By: Self Edit Transcribed Date: 04/01/2025 11:00 ET Narrative 04/01/2025 12:27 PM EDT A BILATERAL DIGITAL 3D SCREENING MAMMOGRAPHY HISTORY: Routine screening. Family history of breast cancer in aunt COMPARISON: Multiple priors dating back to 04/30/2021 Technique: Bilateral full field digital mammography (3D) was performed using standard CC and MLO projections CAD was used to evaluate this mammogram. FINDINGS: Right: Indeterminate upper outer middle/posterior depth focal asymmetry Left: No suspicious masses, groups of microcalcification or areas of architectural distortion identified. Stable typically benign parenchymal asymmetries. BREAST DENSITY: C - The breasts are heterogeneously dense which may obscure small masses. Procedure Note Rose Marie Christianson MD - 04/01/2025 A BILATERAL DIGITAL 3D SCREENING MAMMOGRAPHY HISTORY: Routine screening. Family history of breast cancer in aunt COMPARISON: Multiple priors dating back to 04/30/2021 Technique: Bilateral full field digital mammography (3D) was performedusing standard CC and MLO projections CAD was used to evaluate this mammogram. FINDINGS: Right: Indeterminate upper outer middle/posterior depth focal asymmetry Left: No suspicious masses, groups of microcalcification or areas ofarchitectural distortion identified. Stable typically benign parenchymalasymmetries. BREAST DENSITY: C - The breasts are heterogeneously dense which mayobscure small masses. IMPRESSION: 1. Left: No mammographic evidence of malignancy 2. Right: Indeterminate upper outer middle/posterior depth focalasymmetry 3. Heterogeneous breast parenchyma BI-RADS CATEGORY: 0 - INCOMPLETE - NEED ADDITIONAL IMAGING EVALUATION RECOMMENDATION: Additional right breast imaging recommended. Right breast CC and MLO spotcompression, full-field ML, targeted ultrasound Mammo Location: [facility], [address] [place] [address], [phone], . -------- FINAL REPORT -------- Dictated By: Rose Marie Christianson Dictated Date: 04/01/2025 10:51 ET Assigned Physician: Rose Marie Christianson Reviewed and Electronically Signed By: Rose Marie Christianson Signed Date: 04/01/2025 12:27 ET Workstation ID: [id number] Transcribed By: Self Edit Transcribed Date: 04/01/2025 11:00 ET us Heladio Valdes CNM IMG BI PROCEDURES Final Resul t * (ABNORMAL) Lipid panel with reflex to direct LDL (11/27/2024 10:19 AM EDT) Cholesterol 212(H) 0 - 200 mg/dL LAB CHEMISTRY METHOD 11/27/2024 2:39 PM EDT [facility] Triglycerides 65 0 - 150 mg/dL LAB CHEMISTRY METHOD 11/27/2024 2:39 PM EDT [facility] HDL 64 >=40 mg/dL LAB CHEMISTRY METHOD 11/27/2024 2:39 PM EDT [facility] LDL Calculated 135(H) 0 - 100 mg/dL LAB CHEMISTRY METHOD 11/27/2024 2:39 PM EDT [facility] VLDL Cholesterol Roque 13 mg/dL LAB CHEMISTRY METHOD 11/27/2024 2:39 PM EDT [facility] Non HDL Chol. (LDL+VLDL) 148(H) <145 mg/dL LAB CHEMISTRY METHOD 11/27/2024 2:39 PM EDT [facility] Chol/HDL Ratio 3.3 0.0 - 4.4 LAB CHEMISTRY METHOD 11/27/2024 2:39 PM EDT [facility] Blood Venous blood specimen / Unknown Venipuncture / Unknown 11/27/2024 10:19 AM EDT 11/27/2024 10:19 AM EDT us Flip CHIRINOS LAB BLOOD ORDERABLES Fi nal Result [facility] [address] [place] [address], [place] [phone] * Hepatitis C antibody (10/06/2024 10:29 AM EST) Hepatitis C Antibody Negative Negative LAB CHEMISTRY METHOD 10/06/2024 3:31 PM EST [facility] Blood Venous blood specimen / Unknown Venipuncture / Unknown 10/06/2024 10:29 AM EST 10/06/2024 10:29 AM EST [facility] LAB BLOOD ORDERABLES Final Re sult Performing Organization Address [facility]/ZIP Co de Phone Number [facility] [address] [place] [address], * HIV 1,2 antibody, p24 antigen with reflex to differentiation (10/06/2024 10:29 AM EST) [facility] HIV Combo AB/AG Negative Negative LAB CHEMISTRY METHOD 10/06/2024 3:03 PM EST [facility] Blood Venous blood specimen / Unknown Venipuncture / Unknown 10/06/2024 10:29 AM EST 10/06/2024 10:29 AM EST Narrative [facility] - 10/06/2024 3:03 PM EST This assay is a 4th generation assay allowing for earlier detection of HIV infection by detecting the presence of the HIV-1 p24 antigen as well as the traditional antibodies to HIV type 1 (including group O) and type 2. Use of a 4th generation assay is the current CDC recommendation for HIV screening. Heladio Valdes [facility] BLOOD ORDERABLES Final Re sult Performing Organization Address [facility]/ZIP Co de Phone Number [facility] [address] [place] [address], [place] [phone] * HPV with reflex genotype (10/06/2024 9:41 AM EST) [facility] HPV Negative Negative LAB MICROBIOLOGY METHOD 10/07/2024 1:11 PM EST [facility] Brushing Cervix uteri structure / Unknown 10/06/2024 9:41 AM EST 10/07/2024 5:51 AM EST us Heladio Valdes CN LAB MOLECULAR DIAGNOSTICS ORD ERABLES Final Result [facility] ([facility] [address] [place] [address], from Last 3 Months or Most Recently Relevant to Health [place] [id number] [facility] [place] [id number] Care Teams 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
--- OUTSIDE RECORDS SUMMARY | 2025-05-29 15:52 | XMS_ITS | Clinical Summary ---
Author Organization [facility] Address [address] [place] [address] Care Team Providers Care Science Specialist Name Role Phone Kelvin Blake MD Primary Care Provider [phone] Allergies No known active allergies Medications Medication Sig Dispensed Refills Start Date End Date Status losartan (COZAAR) 100 MG tablet Take 1 tablet (100 mg total) by mouth daily. 0 Active metoprolol succinate (TOPROL-XL) 24 hr tablet 25 mg Take by mouth daily. 0 Active levothyroxine (SYNTHROID) tablet 25 mcg Take 1 tablet (25 mcg total) by mouth every morning on an empty stomach. 0 Active atorvastatin (LIPITOR) tablet 10 mg Take 1 tablet (10 mg total) by mouth every evening. 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 Family History Medical History Relation Name Comments Cancer Maternal Aunt Cancer Maternal Uncle Relation Name Status Comments Maternal Aunt breast cancer Maternal Uncle colon Social History Tobacco Use Types Packs/Day Years Used Date Smoking Tobacco: Never Smokeless Tobacco: Never Alcohol Use Standard Drinks/Week Comments No 0 (1 standard drink = 0.6 oz pur e alcohol) Sex and Gender Information Value Date Recorded Sex Assigned at Not on file Gender Identity Not on file Sexual Orientation Not on file Job Start Date Occupation Industry Not on file Not on file Not on file Last Filed Vital Signs Vital Sign Reading Time Taken Comments Blood Pressure 118/67 04/11/2024 10:07 AM EDT Pulse 61 04/11/2024 10:07 AM EDT Temperature 36.5 C (97.7 F) 04/11/2024 10:07 AM EDT Respiratory Rate - - Oxygen Saturation 100% 04/11/2024 10:07 AM EDT Inhaled Oxygen Concentration - - Weight 69.5 kg (153 lb 3.2 oz) 04/11/2024 10:07 AM EDT Height 160 cm (5' 3 ) 04/12/2023 11:27 AM EDT Body Mass Index 27.14 04/12/2023 11:27 AM EDT Plan of Treatment Health Maintenance Due Date Last Done Comments Hepatitis C Screening 1975 Depression Screening 1987 Preventative Health Evaluation 1993 Cervical Cancer Screening (Pap Smear) 01/15/1996 Colon Cancer Screening (Colonoscopy) 01/15/2020 Breast Cancer Screening (Mammogram) 2025 Shingrix-Zoster Vaccine (1 of 2) 2025 DTap / Tdap / Td (2 - Td or Tdap) 03/10/2025 03/10/2015 COVID-19 Vaccine (3 - season) 2025 01/10/2021, 12/20/2020 Influenza Vaccine (#1) 2025 7, 07/24/2017, 07/12/2015, Additional history exists Hepatitis B Vaccines Completed 09/15/2015, 04/15/2015, 03/15/2015 Pneumococcal Vaccine Aged Out 2017 No long er eligible based on patient's age to complete this topic RSV Ped < 20 months Aged Out No longe r eligible based on patient's age to complete this topic Care Teams Science Specialist Relationship Specialty Start Date End Date Kelvin Blake MD [address] [facility] [place] [id number] PCP - General Internal Medicine 04/11/24
[2025-05-29 16:01] LABS: Alanine Aminotransferase 19 U/L (0-31); Albumin Level 4.7 g/dL (3.5-5.0); Alkaline Phosphatase 78 U/L (39-117); Anion Gap 10 (12-20); Aspartate Amino Transferase 23 U/L (5-31); Blood Urea Nitrogen 10 mg/dL (9-16); Calcium 9.6 mg/dL (8.4-10.2); Carbon Dioxide 27 mmol/L (22-29); Chloride 109 mmol/L (96-108); Estimated Glomerular Filt Rate > 60; Potassium 4.3 mmol/L (3.3-5.1); Sodium 142 mmol/L (135-145); Total Protein 7.8 g/dL (6.5-8.0)
== END 2025-05-29 13:12 | disposition home or self-care (01) ==
LOC: HO.XRAY 13:11
PROVIDERS: PCP Physician Assistant; Visit Provider Student in an Organized Health Care Education/Training Program
DX: M32.19 Other organ or system involvement in systemic lupus erythematosus (principal); Z79.899 Other long term (current) drug therapy
CPT/HCPCS: 36415; 73030; 73130; 80053; 81001; 82570; 84156; 85025; 85652; 86140; 86160; 86225

== ENCOUNTER → 2025-05-29 13:33 | Outpatient (BNV) | payer OTHER, SELFPAY | PROVIDERS: PCP Physician Assistant; Visit Provider Radiology Diagnostic Radiology | DX: M75.32 Calcific tendinitis of left shoulder (principal); M85.841 Other specified disorders of bone density and structure, right hand; M85.842 Other specified disorders of bone density and structure, left hand | CPT/HCPCS: 73030; 73130 ==

== ENCOUNTER 2025-06-02 10:22 | Outpatient (AMB) | payer OTHER, SELFPAY ==
--- NOTE | 2025-06-02 10:24 | A.OFFVIS_ITS ---
Vital Signs 06/02/25 10:31 Height 5 ft 3 in Weight 148 lb 9.465 oz BMI 26.3 BP 120/72 Blood Pressure Location Lt brachial Position Sitting Pulse 58 Pulse Source Pulse Oximeter Pulse Oximetry (%) 98 Oxygen Delivery Method Room Air Intake Visit Reasons: follow up Intake Note: Patient presents for Lupus follow up. Allergies No Known Allergies Allergy (Verified 06/02/25 10:30) Medication List - Last Reconciled 06/02/25 by Trinity Vieira MD acetaminophen (Tylenol Extra Strength) 500 mg PO Q6H PRN atorvastatin 20 mg PO QPM cyclobenzaprine 5 - 10 mg (0.5 - 1 x 10 mg) PO BEDTIME PRN estradiol 0.01%(0.1mg/gram) 1 g vaginal 2XW ibuprofen (Motrin IB) 800 mg PO DAILY levothyroxine 25 mcg PO DAILY losartan 100 mg PO DAILY metoprolol tartrate 12.5 mg (1/2 x 25 mg) PO DAILY vancomycin 250 mg PO QID HPI Comments Details: Patient is a 50-year-old female with hyperlipidemia, hypothyroidism, hypertension, recurrent C diff infection and SLE complicated by biopsy-proven class 2 lupus nephritis here today for follow up Interval History: Patient last seen 01/28/25 with me - On Hydroxychloroquine 300mg (not taking) - Patient has not been taking the plaquenil for the past 8 months - Has been noticing increased pain in her hands and shoulders for the past 1 month - Restarted plaquenil and given prn prednisone 5mg tablets Today - On Hydroxychloroquine 300mg (not taking) - Decided not to take the plaquenil - Left shoulder pain, XRs show calcific tendonitis Rheumatologic History: Onset 2001 with fever, arthritis, skin rash, throbocytopenia (+GABE ++DsDNA, low C3, low C4) 04/2007: abdominal pains, fever, headaches with some CSF blood - ? Source 02/2010: flare of SLE vs pre-eclampsia.Renal biopsy 12/21: Class 2 lupus nephritis(mesangial proliferative) Proteinuria developed; remains on hydroxychlorquine Hydroxychloroquine had to be stopped in 2014 because of loose stools and abdominal pains. Restarted 01/27 with SLE flare - stopped again 2019; restarted 2020 Current Rheumatology Medication(s): Plaquenil 300 mg daily (not taking) [facility] Medical History Chest pain delivery delivered Skin laxity SLE (systemic lupus erythematosus) Hypothyroidism Degenerative cervical disc Essential hypertension Snoring Palpitation Chronic diarrhea Lymphadenopathy Surgical History H/O foot surgery History of cholecystectomy Family History Maternal Uncle Colon cancer Maternal Aunt Breast cancer Uterine cancer Mother Lymph node cancer Social History Household Members: Spouse, Children and Other Household Members Other:: Mother Alcohol intake: never Patient Tobacco Use Status: Never used Tobacco Current occupational status: employed 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,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 Review of Systems Narrative Review of Systems Constitutional: Denies fever, chills, weight loss ENT: Denies vision changes, eye pain or eye redness, dental caries, dry mouth GI: Denies nausea, vomiting, diarrhea, abdominal pain, change in BM Pulm: Denies SOB, ONTIVEROS, hemoptysis, wheezing Cards: Denies chest pain, palpitations Skin: Denies Raynaud's, rash, nail changes, photosensitivity, EN[employer]GY DERIVATIVES TRADER: Denies headaches, weakness, paresthesias, recurrent falls MSK: as per HPI All other systems reviewed and are unremarkable except noted above Physical Exam Exam Exam: Vital signs reviewed Physical Examination CONSTITUITIONAL Patient alert and cooperative. Well appearing and in no apparent painful distress MSK Hands * Right Hand: Able to make a fist. No swelling or tenderness to palpation of the MCPs, PIPs or DIPs. * Left Hand: Able to make a fist. No swelling or tenderness to palpation of the MCPs, PIPs or DIPs. * Mild Herbedens nodes noted bilaterally Wrists * Right Wrist: Full ROM to flexion and extension. No swelling or TTP * Left Wrist: Full ROM to flexion and extension. No swelling or TTP Elbows * Right Elbow: Full ROM. No swelling or TTP. No TTP of the medial epicondyle. No TTP of the lateral epicondyle * Left Elbow: Full ROM. No swelling or TTP. No TTP of the medial epicondyle. No TTP of the lateral epicondyle Shoulders * Right shoulder: Full ROM. No swelling noted. No TTP of the AC joint. No TTP of the subacromial bursa. No TTP of the posterior shoulder * Left shoulder: Decreased ROM. No swelling noted. No TTP of the AC joint. No TTP of the subacromial bursa. No TTP of the posterior shoulder Knees * Right knee: Full ROM. No swelling noted. No TTP of the knee joint line. No TTP of pes anserine bursa * Left knee: Full ROM. No swelling noted. No TTP of the knee joint line. No TTP of pes anserine bursa. Ankles * Right ankle: Good ankle dorsiflexion and plantar flexion. No swelling. No TTP of the ankle joint * Left ankle: Good ankle dorsiflexion and plantar flexion. No swelling. No TTP of the ankle joint Feet * Right foot: Negative squeeze test * Left foot: Negative squeeze test Tender points? * No tenderness to palpation of the bilateral trapezius, supraspinatus, anterior costochondral junctions, bilateral suboccipital muscle insertions SKIN No rashes Vital Signs: Last Vital Signs Pulse 58 06/02/25 10:31 BP 120/72 06/02/25 10:31 Pulse Ox 98 06/02/25 10:31 Oxygen Delivery Method Room Air 06/02/25 10:31 BMI result Body Mass Index 26.3 Results Reviewed Results Reviewed: Laboratory Tests 01/23/25 05/29/25 12:10 13:26 WBC 6.2 RBC 4.38 Hgb 13.4 Hct 39.5 Plt Count 308 ESR 25 H 18 Sodium 142 Potassium 4.3 Chloride 109 H Carbon Dioxide 27 BUN 10 Creatinine 0.74 AST 23 ALT 19 C-Reactive Protein < 0.10 Laboratory Tests 05/29/25 13:26 Double Strand DNA Ab 4 Complement C3 132 Complement C4 21 Laboratory Tests 05/29/25 13:19 Urine Color Yellow Urine Appearance Clear Urine pH 5.5 Urine Protein Negative U Random Total Protein < 7 XR Shoulder 05/2025 FINDINGS: RIGHT SHOULDER: Normal bone mineralization. No fracture, dislocation, or suspicious bone lesion. Normal alignment. The glenohumeral joint is normal. The AC joint is normal. There is a type II acromion. No undersurface spurring. The subacromial space is preserved. Remainder of the soft tissue and bony structures appear normal. LEFT SHOULDER: Normal bone mineralization. No fracture, dislocation, or suspicious bone lesion. Normal alignment. The glenohumeral joint is normal. The AC joint is normal. There is a type II acromion. No undersurface spurring. The subacromial space is preserved. There is mild calcification of the supraspinatus tendon abutting the footplate insertion. Remainder of the soft tissue and bony structures appear normal. IMPRESSION: 1. Normal right shoulder. 2. Mild calcific tendinopathy of the supraspinatus tendon, left shoulder. XR Left Hand 05/2025 FINDINGS: Periarticular osteopenia. Bone alignment is normal. Joint spaces are normal. No erosions or soft tissue calcifications. IMPRESSION: Periarticular osteopenia otherwise normal left hand. Assessment & Plan Assessment & Plan (1) SLE (systemic lupus erythematosus): Comment: Onset 2001 with fever, arthritis, skin rash, throbocytopenia (+GABE ++DsDNA, low C3, low C4) 04/2007: abdominal pains, fever, headaches with some CSF blood - ? Source 02/2010: flare of SLE vs pre-eclampsia. Renal biopsy 12/21: Class 2 lupus n ephritis(mesangial proliferative) Proteinuria developed; remains on hydroxychlorquine Hydroxychloroquine had to be stopped in 2014 because of loose stools and abdominal pains. Restarted 01/27 with SLE flare - stopped again 2019; restarted 2020 Code(s): M32.9 - Systemic lupus erythematosus, unspecified Category: Medical Qualifiers: Systemic lupus erythematosus type: other Systemic lupus erythematosus organ involvement: other Qualified Code(s): M32.19 - Other organ or system involvement in systemic lupus erythematosus Plan: #SLE Patient is a 50 y.o. female with SLE c/b lupus nephritis class II presents for follow up. No active SLE noted on examination Had a long discussion about being on Plaquenil to reduce the lupus activity but patient would prefer to remain off the hydroxychloroquine and follow her labs Risks associated with this plan include flares of her disease and worsening of her underlying lupus. Patient is aware and prefers to stay off hydroxychloroquine Plan - Monitor off immunosuppression at patient's request - RTC 1 year - Labs before visit: CBC, CMP, ESR, CRP, C3, C4, dsDNA, UA, UPC Plan I spent 30 minutes reviewing the record and labs, taking a history, examining the patient, discussing the treatment plan, ordering diagnostic work up and documenting in the medical record Orders: Orders C Reactive Protein 1 Year M32.9 - Systemic lupus erythematosus, unspecified Erythrocyte Sedimentation Rate 1 Year M32.9 - Systemic lupus erythematosus, unspecified Complement C3 1 Year M32.9 - Systemic lupus erythematosus, unspecified Complement C4 1 Year M32.9 - Systemic lupus erythematosus, unspecified Anti DNA DS Antibody 1 Year M32.9 - Systemic lupus erythematosus, unspecified UA ClnCatch+Micro w/rflx Cult 1 Year M32.9 - Systemic lupus erythematosus, unsp ecified Complete Blood Count Auto Diff 1 Year M32.9 - Systemic lupus erythematosus, unspecified Comprehensive Met. Panel 1 Year M32.9 - Systemic lupus erythematosus, unspecified Protein Creatinine Ratio, Ur 1 Year M32.9 - Systemic lupus erythematosus, unspecified Medications: Discontinued prednisone Discontinued Reason: Doctor's Order 5 mg PO DAILY PRN 30 tabs 0RF lupus flare M32.9 - Systemic lupus erythematosus, unspecified hydroxychloroquine (Plaquenil) Discontinued Reason: Doctor's Order 300 mg (1.5 x 200 mg) PO DAILY 135 tabs 1RF M32.9 - Systemic lupus erythematosus, unspecified cyclobenzaprine Discontinued Reason: Doctor's Order 5 - 10 mg (0.5 - 1 x 10 mg) PO BEDTIME PRN 30 tabs 1RF muscle spasm M54.50 - Low back pain, unspecified Coding Level of Care Code Est Pt Level 4 (33391) Complex EM visit Add On G2211 Diagnoses Other systemic lupus erythematosus with other organ involvement M32.19 Systemic lupus erythematosus type: other Systemic lupus erythematosus organ involvement: other
[2025-06-02 10:31] VITALS: BP 120/72; PULSE 58; O2SAT 98; BMI 26.3
--- OUTSIDE RECORDS SUMMARY | 2025-06-02 12:18 | XMS_ITS | Clinical Summary ---
Author Organization [facility] Address [address] [place] [address] Care Team Providers Care Half Section Ironer Name Role Phone Kelvin Blake MD Primary Care Provider [phone] Allergies No known active allergies Medications Medication [...] age to complete this topic Care Teams Half Section Ironer Relationship Specialty Start Date End Date Kelvin Blake MD [address] [facility] [place] [id number] PCP - General Internal Medicine 04/11/24
== END 2025-06-02 11:02 | disposition home or self-care (01) ==
LOC: HO.RHES 10:23
PROVIDERS: PCP Internal Medicine; Visit Provider Student in an Organized Health Care Education/Training Program
DX: M32.19 Other organ or system involvement in systemic lupus erythematosus (principal)
CPT/HCPCS: 99214